=== PATIENT | male | born 1965 | race American Indian/Alaskan Native ===

== ENCOUNTER 2017-02-16 13:16 | Emergency (ER) | payer MEDICARE ==
--- NOTE | 2017-02-16 16:20 | XRay Report ---
ROUTINE CHEST, TWO VIEWS: History: Productive cough. PA and lateral views demonstrate the heart and mediastinal contour to be of normal size and shape. The lungs are clear and fully expanded and the soft tissues and bony structures are normal. IMPRESSION: Normal study.
[2017-02-16] MEDS ORDERED: NACL 0.9% 1000 ML 1,000 ML IV ONE (17:19)
[2017-02-16] MEDS ORDERED: DUONEB 0.5 MG-3 MG/3 ML SOLN IH ONE (17:19)
--- NOTE | 2017-02-16 17:20 | Emergency Department Report ---
ED General Adult HPI - General Chief complaint: Upper Respiratory Infection Stated complaint: UPPER RESPIRATORY INFECTION Time Seen by Provider: 02/16/17 16:51 Source: patient Mode of arrival: Ambulatory Limitations: No Limitations - History of Present Illness Initial comments: PT c/o cough x 4-6 months. PT states his cough is productive. PT also reports back pain that radiates down into scrotum. PT also c/o yellowing of his eyes. PT states he kept delaying care because he thought his symptoms would improve. PT states he has chest congestion and wheezing sometimes at night. PT states he lives alone, denies sick contacts. PT states he has not been sexually active in years. PT denies hx of IVDA, drinking or blood transfusions. PT is not a smoker. PT also denies use of OTC pain medications that include Tylenol. MD Complaint: Cough/ jaundice Onset/Timin -: Gradual, month(s) Location: eyes, chest, abdomen Quality: aching Consistency: constant Improves with: none Associated Symptoms: cough, fever/chills, malaise, nausea/vomiting. denies: chest pain, rash, shortness of breath - Related Data Home Medications Medication Instructions Recorded Confirmed Last Taken Amlodipine Besylate/Benazepril 1 tab PO QDAY 11/24/13 11/24/13 11/23/13 12:00 [Lotrel 10-20 mg] Atenolol [Tenormin] 25 mg PO QDAY 11/24/13 11/24/13 11/23/13 12:00 Previous Rx's Medication Instructions Recorded Last Taken Type HYDROcodone/APAP 5-325 [[place] 1 each PO Q8HR PRN #15 tablet 11/24/13 Unknown Rx 5-325 mg TAB] Tamsulosin [Flomax] 0.4 mg PO QDAY #6 cap 11/24/13 Unknown Rx Ciprofloxacin HCl [Ciprofloxacin 500 mg PO Q12H #20 tab 06/28/15 Unknown Rx TAB] Allergies Allergy/AdvReac Type Severity Reaction Status Date / Time No Known Allergies Allergy Unverified 11/24/13 14:23 ED Review of Systems ROS: Stated complaint: UPPER RESPIRATORY INFECTION Other details as noted in HPI Comment: All other systems reviewed and negative Constitutional: chills, fever (subjective ) Eyes: other (yellowing of the whites of his eyes ). denies: eye discharge ENT: throat pain, congestion, other (post nasal drainage ) Respiratory: cough, wheezing Cardiovascular: denies: chest pain Gastrointestinal: as per HPI, nausea. denies: abdominal pain, vomiting Genitourinary: testicular pain, other (urine color appears more yellow ). denies: dysuria, hematuria, discharge Musculoskeletal: back pain Skin: denies: rash, lesions, change in color ED Past Medical Hx - Past Medical History Hx Hypertension: Yes Hx Diabetes: Yes Additional medical history: high cholesterol - Surgical History Past Surgical History?: No - Social History Smoking Status: Never Smoker Substance Use Type: None - Medications Home Medications: Home Medications Medication Instructions Recorded Confirmed Last Taken Type Amlodipine Besylate/Benazepril 1 tab PO QDAY 11/24/13 11/24/13 11/23/13 12:00 History [Lotrel 10-20 mg] Atenolol [Tenormin] 25 mg PO QDAY 11/24/13 11/24/13 11/23/13 12:00 History HYDROcodone/APAP 5-325 [[place] 1 each PO Q8HR PRN #15 tablet 11/24/13 Unknown Rx 5-325 mg TAB] Tamsulosin [Flomax] 0.4 mg PO QDAY #6 cap 11/24/13 Unknown Rx Ciprofloxacin HCl [Ciprofloxacin 500 mg PO Q12H #20 tab 06/28/15 Unknown Rx TAB] ED Physical Exam - General Limitations: No Limitations General appearance: alert, in no apparent distress - Head Head exam: Present: atraumatic, normocephalic, normal inspection - Eye Eye exam: Present: PERRL, EOMI, scleral icterus. Absent: nystagmus, periorbital swelling, periorbital tenderness Pupils: Present: normal accommodation - ENT ENT exam: Present: normal exam, mucous membranes moist, normal external ear exam - Neck Neck exam: Present: normal inspection, full ROM. Absent: tenderness, meningismus, lymphadenopathy - Respiratory Respiratory exam: Present: normal lung sounds bilaterally. Absent: respiratory distress, chest wall tenderness, accessory muscle use, decreased breath sounds - Cardiovascular Cardiovascular Exam: Present: regular rate, normal rhythm, normal heart sounds - GI/Abdominal GI/Abdominal exam: Present: soft, tenderness, hyperactive bowel sounds - Extremities Exam Extremities exam: Present: normal inspection, full ROM. Absent: tenderness, pedal edema, calf tenderness - Back Exam Back exam: Present: normal inspection, full ROM, other (negative straight leg raise ). Absent: CVA tenderness (R), CVA tenderness (L), muscle spasm, paraspinal tenderness, vertebral tenderness - Neurological Exam Neurological exam: Present: alert, oriented X3, CN II-XII intact, normal gait - Psychiatric Psychiatric exam: Present: normal affect, normal mood - Skin Skin exam: Present: warm, dry, intact ED Course Vital Signs 02/16/17 13:33 Temperature 98.1 F Pulse Rate 63 Respiratory 18 Rate Blood Pressure 125/85 O2 Sat by Pulse 100 Oximetry - Reevaluation(s) Reevaluation #1: 02/16/17 17:23 PT aware of XR results. PT aware additional labs ordered. Reevaluation #2: 02/16/17 19:11 PT states he is feeling better after receiving 1L ns. PT wanting dc home. PT aware he will need to follow up with PCP. Dr Dailey aware of pt and agrees with plan of care. Reevaluation #3: 02/16/17 19:14 given length of pt's symptoms will treat as complicated bronchitis - Pulse Oximetry Interpretation Digit-Finger Initial Pulse Oximetry Readin Actions Taken: none ED Medical Decision Making - Lab Data Result diagrams: 02/16/17 17:49 02/16/17 17:49 Lab Results 02/16/17 02/16/17 02/16/17 Range/Units 17:42 17:49 17:49 WBC 6.1 (4.5-11.0) K/mm3 RBC 4.93 (3.65-5.03) M/mm3 Hgb 14.3 (11.8-15.2) gm/dl Hct 43.9 (35.5-45.6) % MCV 89 (84-94) fl MCH 29 (28-32) pg MCHC 33 (32-34) % RDW 13.0 L (13.2-15.2) % Plt Count 246 (140-440) K/mm3 Lymph % (Auto) 38.3 H (13.4-35.0) % [place] % (Auto) 7.6 H (0.0-7.3) % Eos % (Auto) 1.2 (0.0-4.3) % Baso % (Auto) 1.0 (0.0-1.8) % Lymph # 2.4 (1.2-5.4) K/mm3 [place] # 0.5 (0.0-0.8) K/mm3 Eos # 0.1 (0.0-0.4) K/mm3 Baso # 0.1 (0.0-0.1) K/mm3 Seg Neutrophils % 51.9 (40.0-70.0) % Seg Neutrophils # 3.2 (1.8-7.7) K/mm3 Sodium 137 (137-145) mmol/L Potassium 4.0 (3.6-5.0) mmol/L Chloride 97.6 L (98-107) mmol/L Carbon Dioxide 24 (22-30) mmol/L Anion Gap 19 mmol/L BUN 17 (9-20) mg/dL Creatinine 0.9 (0.8-1.5) mg/dL Estimated GFR > 60 ml/min BUN/Creatinine Ratio 18.88 % Glucose 110 H (75-100) mg/dL Calcium 9.6 (8.4-10.2) mg/dL Total Bilirubin 1.2 (0.1-1.2) mg/dL AST 19 (5-40) units/L ALT 18 (7-56) units/L Alkaline Phosphatase 64 (35-129) units/L Total Protein 8.1 (6.3-8.2) g/dL Albumin 4.3 (3.9-5) g/dL Albumin/Globulin Ratio 1.1 % Lipase 22 (13-60) units/L Urine Color Yellow (Yellow) Urine Turbidity Clear (Clear) Urine pH 7.0 (5.0-7.0) Ur Specific [place] 1.014 (1.003-1.030) Urine Protein <15 mg/dl (Negative) mg/dL Urine Glucose (UA) Neg (Negative) mg/dL Urine Ketones Tr (Negative) mg/dL Urine Blood Neg (Negative) Urine Nitrite Neg (Negative) Urine Bilirubin Neg (Negative) Urine Urobilinogen < 2.0 (<2.0) mg/dL Ur Leukocyte Esterase Neg (Negative) Urine WBC (Auto) < 1.0 (0.0-6.0) /HPF Urine RBC (Auto) 1.0 (0.0-6.0) /HPF - Radiology Data Radiology results: report reviewed CXR-NAP - Differential Diagnosis hepatitis, bronchitis, pna Critical Care Time: No Critical care attestation.: If time is entered above; I have spent that time in minutes in the direct care of this critically ill patient, excluding procedure time. ED Disposition Clinical Impression: Bronchitis, Yellow eyes, Acute exacerbation of chronic low back pain Disposition: DISCHARGED TO HOME OR SELFCARE Is pt being admited?: No Does the pt Need Aspirin: No Condition: Stable Instructions: Chronic Bronchitis (ED), Chronic Back Pain (ED), Jaundice (ED) Additional Instructions: Drink plenty of fluids Avoid OTC medication that contains Tylenol Follow up with PCP in 2-3 days, return to ED if worsening or concerns Referrals: PRIMARY CARE, [Primary Care Provider] - 3-5 Days MINISTERIO GONZALEZ MD [Staff Physician] - 3-5 Days [facility] [Outside] - 3-5 Days [facility] [Outside] - 3-5 Days Time of Disposition: 19:13
[2017-02-16 18:10] LABS: Eosinophils % (Auto) 1.2 % (0.0-4.3); Hematocrit 43.9 % (35.5-45.6); Hemoglobin 14.3 gm/dl (11.8-15.2); Mean Corpuscular HGB Conc 33 % (32-34); Mean Corpuscular Hemoglobin 29 pg (28-32); Mean Corpuscular Volume 89 fl (84-94); Platelet Count 246 K/mm3 (140-440); Red Blood Count 4.93 M/mm3 (3.65-5.03); White Blood Count 6.1 K/mm3 (4.5-11.0)
[2017-02-16 18:16] LABS: Bilirubin,Urine NEG (Negative); Blood,Urine NEG (Negative); Ketones,Urine TR mg/dL (Negative); Leukocyte Esterase,Urine NEG (Negative); Nitrite,Urine NEG (Negative); Protein,Urine <15 mg/dL mg/dL (Negative); Urobilinogen,Urine < 2.0 mg/dL (<2.0); WBC,Urine < 1.0 /HPF (0.0-6.0)
[2017-02-16 18:20] LABS: Alanine Aminotransferase 18 units/L (7-56); Albumin 4.3 g/dL (3.9-5); Albumin/Globulin Ratio 1.1 %; Alkaline Phosphatase 64 units/L (35-129); Anion Gap 19 mmol/L; BUN/Creatinine Ratio 18.88; Bilirubin,Total 1.2 mg/dL (0.1-1.2); Blood Urea Nitrogen 17 mg/dL (9-20); Calcium 9.6 mg/dL (8.4-10.2); Carbon Dioxide 24 mmol/L (22-30); Chloride 97.6 mmol/L (98-107); Glucose 110 mg/dL (75-100); Lipase 22 units/L (13-60); Sodium 137 mmol/L (137-145); Total Protein 8.1 g/dL (6.3-8.2)
[2017-02-16 19:53] VITALS: BP 128/80
== END 2017-02-16 19:51 | disposition home or self-care (01) ==
LOC: ED 13:16
DX: J40 Bronchitis, not specified as acute or chronic (principal); M54.5 Low back pain; G89.29 Other chronic pain; H57.9 Unspecified disorder of eye and adnexa; I10 Essential (primary) hypertension; E11.9 Type 2 diabetes mellitus without complications; E78.00 Pure hypercholesterolemia, unspecified
CPT/HCPCS: 36415; 71020; 80053; 81001; 83690; 85025; 96360; 99284; J7030

== ENCOUNTER 2017-03-08 07:22 | Emergency (ER) | payer MEDICARE ==
[2017-03-08 07:41] VITALS: BP 138/91
[2017-03-08] MEDS ORDERED: DECADRON IM ONE (08:58)
[2017-03-08] MEDS ORDERED: TORADOL IM ONE (08:58)
[2017-03-08 09:32] LABS: Bilirubin,Urine NEG (Negative); Blood,Urine SM (Negative); Ketones,Urine NEG (Negative); Leukocyte Esterase,Urine NEG (Negative); Mucus,Urine FEW /HPF; Nitrite,Urine NEG (Negative); Protein,Urine <15 mg/dL mg/dL (Negative); Urobilinogen,Urine < 2.0 mg/dL (<2.0)
--- NOTE | 2017-03-08 09:48 | Emergency Department Report ---
ED General Adult HPI - General Chief complaint: Back Pain/Injury Stated complaint: COUGH/BACK PAIN Time Seen by Provider: 03/08/17 08:18 Source: patient Mode of arrival: Ambulatory Limitations: No Limitations - History of Present Illness Initial comments: 51-year-old male presents to the ED complaining about low back pain as well as pain around the groin area for masturbating. She also states that he is then taking Levaquin for a chest cold/bronchitis and states that he needs more. States that he did not fill his inhaler from previous visit. Denies fever, shortness of breath, penile discharge, flank pain Severity scale (0 -10): 7 - Related Data Home Medications Medication Instructions Recorded Confirmed Last Taken Amlodipine Besylate/Benazepril 1 tab PO QDAY 11/24/13 11/24/13 11/23/13 12:00 [Lotrel 10-20 mg] Atenolol [Tenormin] 25 mg PO QDAY 11/24/13 11/24/13 11/23/13 12:00 Previous Rx's Medication Instructions Recorded Last Taken Type HYDROcodone/APAP 5-325 [[place] 1 each PO Q8HR PRN #15 tablet 11/24/13 Unknown Rx 5-325 mg TAB] Tamsulosin [Flomax] 0.4 mg PO QDAY #6 cap 11/24/13 Unknown Rx Ciprofloxacin HCl [Ciprofloxacin 500 mg PO Q12H #20 tab 06/28/15 Unknown Rx TAB] Albuterol Sulfate [Ventolin HFA] 2 puff IH Q4H PRN #1 hfa.aer.ad 02/16/17 Unknown Rx Benzonatate [Tessalon Perles] 100 mg PO Q8HR PRN #12 capsule 02/16/17 Unknown Rx Levofloxacin [Levaquin TAB] 500 mg PO QDAY #7 tablet 02/16/17 Unknown Rx ALBUTEROL Inhaler [ProAir HFA 2 puff IH QID PRN #7 inhalation 03/08/17 Unknown Rx Inhaler] Cyclobenzaprine [Flexeril] 10 mg PO TID PRN #14 tablet 03/08/17 Unknown Rx Diclofenac Sodium 75 mg PO BID #14 tablet.dr 03/08/17 Unknown Rx methylPREDNISolone [Medrol] 4 mg PO QDAY #1 tab.ds.pk 03/08/17 Unknown Rx Allergies Allergy/AdvReac Type Severity Reaction Status Date / Time No Known Allergies Allergy Unverified 11/24/13 14:23 ED Review of Systems ROS: Stated complaint: COUGH/BACK PAIN Other details as noted in HPI Constitutional: denies: chills, fever Eyes: denies: eye pain, eye discharge, vision change ENT: denies: ear pain, throat pain Respiratory: cough. denies: shortness of breath, wheezing Cardiovascular: denies: chest pain, palpitations Endocrine: no symptoms reported Gastrointestinal: denies: abdominal pain, nausea, diarrhea Genitourinary: denies: urgency, dysuria Musculoskeletal: back pain. denies: joint swelling, arthralgia Skin: denies: rash, lesions Neurological: denies: headache, weakness, paresthesias Psychiatric: denies: anxiety, depression Hematological/Lymphatic: denies: easy bleeding, easy bruising ED Past Medical Hx - Past Medical History Previous Medical History?: Yes Hx Hypertension: Yes Hx Diabetes: Yes Additional medical history: high cholesterol - Surgical History Past Surgical History?: No - Social History Smoking Status: Never Smoker Substance Use Type: None - Medications Home Medications: Home Medications Medication Instructions Recorded Confirmed Last Taken Type Amlodipine Besylate/Benazepril 1 tab PO QDAY 11/24/13 11/24/13 11/23/13 12:00 History [Lotrel 10-20 mg] Atenolol [Tenormin] 25 mg PO QDAY 11/24/13 11/24/13 11/23/13 12:00 History HYDROcodone/APAP 5-325 [[place] 1 each PO Q8HR PRN #15 tablet 11/24/13 Unknown Rx 5-325 mg TAB] Tamsulosin [Flomax] 0.4 mg PO QDAY #6 cap 11/24/13 Unknown Rx Ciprofloxacin HCl [Ciprofloxacin 500 mg PO Q12H #20 tab 06/28/15 Unknown Rx TAB] Albuterol Sulfate [Ventolin HFA] 2 puff IH Q4H PRN #1 hfa.aer.ad 02/16/17 Unknown Rx Benzonatate [Tessalon Perles] 100 mg PO Q8HR PRN #12 capsule 02/16/17 Unknown Rx Levofloxacin [Levaquin TAB] 500 mg PO QDAY #7 tablet 02/16/17 Unknown Rx ALBUTEROL Inhaler [ProAir HFA 2 puff IH QID PRN #7 inhalation 03/08/17 Unknown Rx Inhaler] Cyclobenzaprine [Flexeril] 10 mg PO TID PRN #14 tablet 03/08/17 Unknown Rx Diclofenac Sodium 75 mg PO BID #14 tablet. 03/08/17 Unknown Rx methylPREDNISolone [Medrol] 4 mg PO QDAY #1 tab.ds.pk 03/08/17 Unknown Rx ED Physical Exam - General Limitations: No Limitations General appearance: alert, in no apparent distress - Head Head exam: Present: atraumatic, normocephalic - Eye Eye exam: Present: normal appearance - ENT ENT exam: Present: normal orophraynx, mucous membranes moist, normal external ear exam - Neck Neck exam: Present: normal inspection - Respiratory Respiratory exam: Present: normal lung sounds bilaterally. Absent: respiratory distress, wheezes, rales, rhonchi, stridor - Cardiovascular Cardiovascular Exam: Present: regular rate, normal rhythm. Absent: systolic murmur, diastolic murmur, rubs, gallop - GI/Abdominal GI/Abdominal exam: Present: soft, normal bowel sounds - Rectal Rectal exam: Present: deferred - Extremities Exam Extremities exam: Present: normal inspection - Back Exam Back exam: Present: normal inspection, paraspinal tenderness. Absent: CVA tenderness (R), CVA tenderness (L) - Neurological Exam Neurological exam: Present: alert, oriented X3 - Psychiatric Psychiatric exam: Present: normal affect, normal mood - Skin Skin exam: Present: warm, dry, intact, normal color. Absent: rash ED Course Vital Signs 03/08/17 03/08/17 07:37 09:17 Temperature 98.3 F Pulse Rate 71 Respiratory 16 18 Rate Blood Pressure 138/91 O2 Sat by Pulse 100 Oximetry ED Medical Decision Making - Lab Data Vital Signs 03/08/17 03/08/17 07:37 09:17 Temperature 98.3 F Pulse Rate 71 Respiratory 16 18 Rate Blood Pressure 138/91 O2 Sat by Pulse 100 Oximetry Laboratory Results - last 24 hr 03/08/17 09:19 Urine Color Yellow Urine Turbidity Clear Urine pH 5.0 Ur Specific [place] 1.015 Urine Protein <15 mg/dl Urine Glucose (UA) Neg Urine Ketones Neg Urine Blood Sm Urine Nitrite Neg Urine Bilirubin Neg Urine Urobilinogen < 2.0 Ur Leukocyte Esterase Neg Urine WBC (Auto) 1.0 Urine RBC (Auto) 1.0 Urine Mucus Few - Medical Decision Making Patient urine results is unremarkable. Neck distress at this time. We will continue steroid and albuterol for cough and follow-up to urology for further evaluation of groin pain Critical care attestation.: If time is entered above; I have spent that time in minutes in the direct care of this critically ill patient, excluding procedure time. ED Disposition Clinical Impression: Chest congestion, Dysuria, Back pain Disposition: DISCHARGED TO HOME OR SELFCARE Is pt being admited?: No Does the pt Need Aspirin: No Condition: Good Instructions: Low Back Strain (ED) Prescriptions: ALBUTEROL Inhaler [ProAir HFA Inhaler] 2 puff IH QID PRN #7 inhalation PRN Reason: Shortness Of Breath Cyclobenzaprine [Flexeril] 10 mg PO TID PRN #14 tablet PRN Reason: Muscle Spasm Diclofenac Sodium 75 mg PO BID #14 tablet. methylPREDNISolone [Medrol] 4 mg PO QDAY #1 tab.ds.pk Referrals: PRIMARY CARE, [Primary Care Provider] - 3-5 Days LINDA ROSARIO MD [Staff Physician] - 3-5 Days Time of Disposition: 09:48
== END 2017-03-08 10:10 | disposition home or self-care (01) ==
LOC: ED 07:22
DX: R09.89 Other specified symptoms and signs involving the circulatory and respiratory systems (principal); R30.0 Dysuria; M54.5 Low back pain; I10 Essential (primary) hypertension; E11.9 Type 2 diabetes mellitus without complications; E78.00 Pure hypercholesterolemia, unspecified
CPT/HCPCS: 81001; 96372; 99283; J1100; J1885

== ENCOUNTER 2017-03-13 01:15 | Emergency (ER) | payer MEDICARE ==
[2017-03-13 02:08] VITALS: BP 125/92
[2017-03-13 02:18] LABS: Basophils % (Auto) 1.1 % (0.0-1.8); Eosinophils % (Auto) 1.5 % (0.0-4.3); Hematocrit 42.6 % (35.5-45.6); Hemoglobin 14.1 gm/dl (11.8-15.2); Mean Corpuscular HGB Conc 33 % (32-34); Mean Corpuscular Hemoglobin 29 pg (28-32); Mean Corpuscular Volume 89 fl (84-94); Platelet Count 210 K/mm3 (140-440); Red Blood Count 4.81 M/mm3 (3.65-5.03); Red Cell Distribution Width 13.1 % (13.2-15.2); White Blood Count 8.2 K/mm3 (4.5-11.0)
[2017-03-13 02:38] LABS: Anion Gap 18 mmol/L; BUN/Creatinine Ratio 19.16; Blood Urea Nitrogen 23 mg/dL (9-20); Calcium 9.3 mg/dL (8.4-10.2); Carbon Dioxide 26 mmol/L (22-30); Chloride 95.7 mmol/L (98-107); Glucose 113 mg/dL (75-100); Potassium 4.1 mmol/L (3.6-5.0); Sodium 136 mmol/L (137-145)
[2017-03-13 02:56] LABS: Bilirubin,Urine NEG (Negative); Blood,Urine NEG (Negative); Ketones,Urine NEG (Negative); Leukocyte Esterase,Urine NEG (Negative); Mucus,Urine FEW /HPF; Nitrite,Urine NEG (Negative); Protein,Urine <15 mg/dL mg/dL (Negative); Urobilinogen,Urine < 2.0 mg/dL (<2.0); WBC,Urine < 1.0 /HPF (0.0-6.0)
--- NOTE | 2017-03-13 05:37 | Emergency Department Report ---
ED Male HPI - General Chief complaint: Urogenital-Male Stated complaint: UTI, CHEST COLD Time Seen by Provider: 03/13/17 05:16 Source: patient Mode of arrival: Ambulatory Limitations: No Limitations - History of Present Illness Initial comments: Patient comes in the ER today with complaints of bilateral testicular discomfort , penile discharge and groin discomfort. Patient states that he has been having these symptoms for several weeks now. Patient states that he was recently seen here and started on Levaquin for 7 days and states his symptoms did improve during that time but that the symptoms seem to return shortly after he stopped taking the antibiotics. Patient also complaining of chest congestion as well as sinus congestion for the past month and states that when he was on the Levaquin symptoms improved but returned as well. Patient asking for more antibiotics. Patient denies any hemoptysis, hematuria, abdominal pain , fever, chills. The patient further notes that he has not been sexually active for 2 or 3 years. MD Complaint: testicle pain, penile discharge - Related Data Home Medications Medication Instructions Recorded Confirmed Last Taken Amlodipine Besylate/Benazepril 1 tab PO QDAY 11/24/13 03/13/17 11/23/13 12:00 [Lotrel 10-20 mg] Previous Rx's Medication Instructions Recorded Last Taken Type ALBUTEROL Inhaler [ProAir HFA 2 puff IH QID PRN #7 inhalation 03/08/17 Unknown Rx Inhaler] Cyclobenzaprine [Flexeril 10 MG 10 mg PO TID PRN #14 tablet 03/08/17 Unknown Rx TAB] Diclofenac Sodium 75 mg PO BID #14 tablet. 03/08/17 Unknown Rx Doxycycline [Vibramycin CAP] 100 mg PO BID #42 capsule 03/13/17 Unknown Rx Phenazopyridine [Pyridium] 200 mg PO TID #9 tab 03/13/17 Unknown Rx Allergies Allergy/AdvReac Type Severity Reaction Status Date / Time No Known Allergies Allergy Unverified 11/24/13 14:23 ED Review of Systems ROS: Stated complaint: UTI, CHEST COLD Other details as noted in HPI Constitutional: denies: chills, fever Eyes: denies: eye pain, eye discharge, vision change ENT: congestion. denies: ear pain, throat pain Respiratory: cough. denies: shortness of breath, SOB with exertion, SOB at rest , wheezing Cardiovascular: denies: chest pain, palpitations Endocrine: no symptoms reported Gastrointestinal: denies: abdominal pain, nausea, diarrhea, constipation, hematemesis, hematochezia Genitourinary: discharge, testicular pain. denies: urgency, dysuria, hematuria , testicular mass Musculoskeletal: denies: back pain, joint swelling, arthralgia Skin: denies: rash, lesions Neurological: denies: headache, weakness, paresthesias Psychiatric: denies: anxiety, depression Hematological/Lymphatic: denies: easy bleeding, easy bruising ED Past Medical Hx - Past Medical History Previous Medical History?: Yes Hx Hypertension: Yes Hx Diabetes: Yes Additional medical history: high cholesterol - Surgical History Past Surgical History?: No - Social History Smoking Status: Never Smoker Substance Use Type: None - Medications Home Medications: Home Medications Medication Instructions Recorded Confirmed Last Taken Type Amlodipine Besylate/Benazepril 1 tab PO QDAY 11/24/13 03/13/17 11/23/13 12:00 History [Lotrel 10-20 mg] ALBUTEROL Inhaler [ProAir HFA 2 puff IH QID PRN #7 inhalation 03/08/17 03/13/17 Unknown Rx Inhaler] Cyclobenzaprine [Flexeril 10 MG 10 mg PO TID PRN #14 tablet 03/08/17 03/13/17 Unknown Rx TAB] Diclofenac Sodium 75 mg PO BID #14 tablet. 03/08/17 03/13/17 Unknown Rx Doxycycline [Vibramycin CAP] 100 mg PO BID #42 capsule 03/13/17 Unknown Rx Phenazopyridine [Pyridium] 200 mg PO TID #9 tab 03/13/17 Unknown Rx ED Physical Exam - General Limitations: No Limitations General appearance: alert, in no apparent distress - Head Head exam: Present: atraumatic, normocephalic - Eye Eye exam: Present: normal appearance - ENT ENT exam: Present: normal exam, normal orophraynx, mucous membranes moist, TM's normal bilaterally, normal external ear exam, other (bilateral frontal and maxillary tenderness on percussion. Bilateral nasal congestion and swollen, erythematous nasal turbinates.) - Neck Neck exam: Present: normal inspection - Respiratory Respiratory exam: Present: normal lung sounds bilaterally, rhonchi. Absent: respiratory distress, wheezes, rales, chest wall tenderness, accessory muscle use - Cardiovascular Cardiovascular Exam: Present: regular rate, normal rhythm. Absent: systolic murmur, diastolic murmur, rubs, gallop - GI/Abdominal GI/Abdominal exam: Present: soft, normal bowel sounds. Absent: distended, tenderness, guarding, rebound - Rectal Rectal exam: Present: deferred - exam: Present: normal inspection, testicular tenderness, circumcision, other (slight tenderness and swelling noted to left greater than right testicle consistent with epididymitis.). Absent: urethral discharge, scrotal swelling - Extremities Exam Extremities exam: Present: normal inspection - Back Exam Back exam: Present: normal inspection, full ROM. Absent: tenderness, CVA tenderness (R), CVA tenderness (L) - Neurological Exam Neurological exam: Present: alert, oriented X3, CN II-XII intact - Psychiatric Psychiatric exam: Present: normal affect, normal mood - Skin Skin exam: Present: warm, dry, intact, normal color. Absent: rash ED Course Vital Signs 03/13/17 01:59 Temperature 98.2 F Pulse Rate 62 Respiratory 18 Rate Blood Pressure 125/92 O2 Sat by Pulse 100 Oximetry ED Medical Decision Making - Lab Data Result diagrams: 03/13/17 02:09 03/13/17 02:09 - Medical Decision Making Patient is nontoxic and hemodynamically stable. Lab results reviewed and discussed with patient in room. Lab results do show a small amount of mucus in urine. Since patient is not sexually active for several years and do not suspect that patient has STD but rather than potential epididymitis. I will start patient on doxycycline for epididymitis as well as treating any upper respiratory infection. Patient is stable for discharge and and is agreement with treatment plan. Critical care attestation.: If time is entered above; I have spent that time in minutes in the direct care of this critically ill patient, excluding procedure time. ED Disposition Clinical Impression: Epididymitis, Bronchitis, Sinusitis Disposition: DISCHARGED TO HOME OR SELFCARE Is pt being admited?: No Does the pt Need Aspirin: No Condition: Good Instructions: Epididymitis (ED), Acute Bronchitis (ED), Sinusitis (ED) Prescriptions: Doxycycline [Vibramycin CAP] 100 mg PO BID #42 capsule Phenazopyridine [Pyridium] 200 mg PO TID #9 tab Referrals: PRIMARY CARE, [Primary Care Provider] - 3-5 Days Forms: STI Treatment and Prevention Time of Disposition: 05:41
== END 2017-03-13 05:45 | disposition home or self-care (01) ==
LOC: ED 01:15
DX: N45.1 Epididymitis (principal); J40 Bronchitis, not specified as acute or chronic; J32.9 Chronic sinusitis, unspecified; I10 Essential (primary) hypertension; E11.9 Type 2 diabetes mellitus without complications; E78.00 Pure hypercholesterolemia, unspecified
CPT/HCPCS: 36415; 80048; 81001; 85025; 99283

== ENCOUNTER 2017-10-31 17:35 | Emergency (ER) | payer MEDICARE ==
[2017-10-31 17:47] VITALS: BP 115/75
[2017-10-31 18:44] LABS: Bilirubin,Urine NEG (Negative); Blood,Urine NEG (Negative); Calcium Oxalate Crystals,Urine 1+; Color,Urine Amber (Yellow); Mucus,Urine 1+ /HPF; Nitrite,Urine NEG (Negative); Protein,Urine <15 mg/dL mg/dL (Negative)
[2017-10-31] MEDS ORDERED: XYLOCAINE 1% MPF 5 mL INFILTRATI ONE (22:22)
[2017-10-31] MEDS ORDERED: ROCEPHIN IM ONE (22:22)
--- NOTE | 2017-10-31 22:22 | Emergency Department Report ---
ED Male HPI - General Chief complaint: Abdominal Pain Stated complaint: H/A, GROIN PAIN Time Seen by Provider: 10/31/17 21:54 Source: patient Mode of arrival: Ambulatory Limitations: No Limitations - History of Present Illness MD Complaint: penile discharge, dysuria Onset/Timin -: days(s) Location: penis Severity: mild Quality: burning Consistency: intermittent Worsens with: urination denies other symptoms - Related Data Home Medications Medication Instructions Recorded Confirmed Last Taken Amlodipine Besylate/Benazepril 1 tab PO QDAY 11/24/13 03/13/17 11/23/13 12:00 [Lotrel 10-20 mg] Previous Rx's Medication Instructions Recorded Last Taken Type ALBUTEROL Inhaler [ProAir HFA 2 puff IH QID PRN #7 inhalation 03/08/17 Unknown Rx Inhaler] Cyclobenzaprine [Flexeril 10 MG 10 mg PO TID PRN #14 tablet 03/08/17 Unknown Rx TAB] Diclofenac Sodium 75 mg PO BID #14 tablet. 03/08/17 Unknown Rx Doxycycline [Vibramycin CAP] 100 mg PO BID #42 capsule 03/13/17 Unknown Rx Phenazopyridine [Pyridium] 200 mg PO TID #9 tab 03/13/17 Unknown Rx Doxycycline [Vibramycin CAP] 100 mg PO Q12HR #20 capsule 10/31/17 Unknown Rx Levofloxacin [Levaquin TAB] 500 mg PO QDAY #20 tablet 10/31/17 Unknown Rx Phenylephrine/Dm/Acetaminop/GG 10 ml PO Q6H PRN #1 liquid 10/31/17 Unknown Rx [Mucinex Wvuw-Qer-Dzfydrnkgz Lq] Allergies Allergy/AdvReac Type Severity Reaction Status Date / Time No Known Allergies Allergy Verified 10/31/17 17:43 ED Review of Systems ROS: Stated complaint: H/A, GROIN PAIN Other details as noted in HPI Constitutional: denies: chills, fever Eyes: denies: eye pain, eye discharge, vision change ENT: denies: ear pain, throat pain Respiratory: denies: cough, shortness of breath, wheezing Cardiovascular: denies: chest pain, palpitations Endocrine: no symptoms reported Gastrointestinal: denies: abdominal pain, nausea, diarrhea Genitourinary: denies: urgency, dysuria Musculoskeletal: denies: back pain, joint swelling, arthralgia Skin: denies: rash, lesions Neurological: denies: headache, weakness, paresthesias Psychiatric: denies: anxiety, depression Hematological/Lymphatic: denies: easy bleeding, easy bruising ED Past Medical Hx - Past Medical History Hx Hypertension: Yes Hx Diabetes: Yes Additional medical history: high cholesterol - Social History Smoking Status: Never Smoker Substance Use Type: None - Medications Home Medications: Home Medications Medication Instructions Recorded Confirmed Last Taken Type Amlodipine Besylate/Benazepril 1 tab PO QDAY 11/24/13 03/13/17 11/23/13 12:00 History [Lotrel 10-20 mg] ALBUTEROL Inhaler [ProAir HFA 2 puff IH QID PRN #7 inhalation 03/08/17 03/13/17 Unknown Rx Inhaler] Cyclobenzaprine [Flexeril 10 MG 10 mg PO TID PRN #14 tablet 03/08/17 03/13/17 Unknown Rx TAB] Diclofenac Sodium 75 mg PO BID #14 tablet. 03/08/17 03/13/17 Unknown Rx Doxycycline [Vibramycin CAP] 100 mg PO BID #42 capsule 03/13/17 Unknown Rx Phenazopyridine [Pyridium] 200 mg PO TID #9 tab 03/13/17 Unknown Rx Doxycycline [Vibramycin CAP] 100 mg PO Q12HR #20 capsule 10/31/17 Unknown Rx Levofloxacin [Levaquin TAB] 500 mg PO QDAY #20 tablet 10/31/17 Unknown Rx Phenylephrine/Dm/Acetaminop/GG 10 ml PO Q6H PRN #1 liquid 10/31/17 Unknown Rx [Mucinex Vwje-Dju-Rklosdhzjq Lq] ED Physical Exam - General Limitations: No Limitations General appearance: alert, in no apparent distress - Head Head exam: Present: atraumatic, normocephalic - Eye Eye exam: Present: normal appearance, PERRL, EOMI - ENT ENT exam: Present: mucous membranes moist - Neck Neck exam: Present: normal inspection - Respiratory Respiratory exam: Present: normal lung sounds bilaterally. Absent: respiratory distress - Cardiovascular Cardiovascular Exam: Present: regular rate, normal rhythm. Absent: systolic murmur, diastolic murmur, rubs, gallop - GI/Abdominal GI/Abdominal exam: Present: soft, normal bowel sounds - Rectal Rectal exam: Present: deferred - Extremities Exam Extremities exam: Present: normal inspection - Back Exam Back exam: Present: normal inspection - Neurological Exam Neurological exam: Present: alert, oriented X3 - Psychiatric Psychiatric exam: Present: normal affect, normal mood - Skin Skin exam: Present: warm, dry, intact, normal color. Absent: rash ED Course Vital Signs 10/31/17 17:43 Temperature 98.3 F Pulse Rate 58 L Respiratory 16 Rate Blood Pressure 115/75 O2 Sat by Pulse 98 Oximetry ED Medical Decision Making - Medical Decision Making A/P: possible urethritis 1-patient empirically treated with ceftriaxone, empiric course of doxycycline. [email or web address] 2-GC cultures sent 3-patient given follow-up with primary care, urology Critical care attestation.: If time is entered above; I have spent that time in minutes in the direct care of this critically ill patient, excluding procedure time. ED Disposition Clinical Impression: Urethritis Disposition: DC-01 TO HOME OR SELFCARE Is pt being admited?: No Does the pt Need Aspirin: No Condition: Stable Instructions: Nonspecific Urethritis in Men (ED), Upper Respiratory Infection ( ED), Cold Symptoms (ED) Prescriptions: Doxycycline [Vibramycin CAP] 100 mg PO Q12HR #20 capsule Levofloxacin [Levaquin TAB] 500 mg PO QDAY #20 tablet Phenylephrine/Dm/Acetaminop/GG [Mucinex Elor-Wgt-Zllawuchfc Lq] 10 ml PO Q6H PRN #1 liquid PRN Reason: Cough Referrals: [facility] [Outside] - 3-5 Days [facility] [Outside] - 3-5 Days [facility] [Provider Group] - 3-5 Days Forms: STI Treatment and Prevention Time of Disposition: 22:22
== END 2017-10-31 22:55 | disposition home or self-care (01) ==
LOC: ED 17:35
DX: N34.2 Other urethritis (principal); I10 Essential (primary) hypertension; E11.9 Type 2 diabetes mellitus without complications; E78.00 Pure hypercholesterolemia, unspecified
CPT/HCPCS: 81001; 96372; 99283; J0696

== ENCOUNTER 2017-12-19 20:19 | Emergency (ER) | payer MEDICARE ==
[2017-12-19 20:45] VITALS: BP 124/79
[2017-12-19 22:00] LABS: Bilirubin,Urine NEG (Negative); Blood,Urine NEG (Negative); Color,Urine Yellow (Yellow); Mucus,Urine 2+ /HPF; Protein,Urine <15 mg/dL mg/dL (Negative)
--- NOTE | 2017-12-19 22:49 | Emergency Department Report ---
ED Male HPI - General Chief complaint: Urogenital-Male Stated complaint: INFECTION Time Seen by Provider: 12/19/17 22:43 Source: patient Mode of arrival: Ambulatory Limitations: No Limitations - History of Present Illness Initial comments: 52-year-old -[place] male comes in for 3 weeks history of burning on urination. Patient reports he had similar symptoms in October but did not complete his medications. Patient is requesting to be placed back on medication since he is having pain with urination and lower back pain and penile pain. Patient reports of a subjective fever denies any nausea no vomiting or hematuria he does admit to a cough with phlegm off white in color. In the midst to penile pain. MD Complaint: penile discharge Severity scale (0 -10): 5 Quality: burning Worsens with: urination - Related Data Home Medications Medication Instructions Recorded Confirmed Last Taken Amlodipine Besylate/Benazepril 1 tab PO QDAY 11/24/13 03/13/17 11/23/13 12:00 [Lotrel 10-20 mg] Previous Rx's Medication Instructions Recorded Last Taken Type ALBUTEROL Inhaler [ProAir HFA 2 puff IH QID PRN #7 inhalation 03/08/17 Unknown Rx Inhaler] Cyclobenzaprine [Flexeril 10 MG 10 mg PO TID PRN #14 tablet 03/08/17 Unknown Rx TAB] Diclofenac Sodium 75 mg PO BID #14 tablet. 03/08/17 Unknown Rx Doxycycline [Vibramycin CAP] 100 mg PO BID #42 capsule 03/13/17 Unknown Rx Phenazopyridine [Pyridium] 200 mg PO TID #9 tab 03/13/17 Unknown Rx Phenylephrine/Dm/Acetaminop/GG 10 ml PO Q6H PRN #1 liquid 10/31/17 Unknown Rx [Mucinex Uudd-Gkl-Rcviejowkx Lq] Doxycycline [Vibramycin CAP] 100 mg PO Q12HR #20 capsule 12/19/17 Unknown Rx Levofloxacin [Levaquin TAB] 500 mg PO QDAY #20 tablet 12/19/17 Unknown Rx Allergies Allergy/AdvReac Type Severity Reaction Status Date / Time No Known Allergies Allergy Verified 10/31/17 17:43 ED Review of Systems ROS: Stated complaint: INFECTION Other details as noted in HPI Constitutional: denies: chills, fever Eyes: denies: eye pain, eye discharge, vision change ENT: denies: ear pain, throat pain Respiratory: denies: cough, shortness of breath, wheezing Cardiovascular: denies: chest pain, palpitations Endocrine: no symptoms reported Gastrointestinal: denies: abdominal pain, nausea, diarrhea Genitourinary: dysuria. denies: urgency Musculoskeletal: back pain Skin: denies: rash, lesions Neurological: denies: headache, weakness, paresthesias Psychiatric: denies: anxiety, depression Hematological/Lymphatic: denies: easy bleeding, easy bruising ED Past Medical Hx - Past Medical History Hx Hypertension: Yes Hx Diabetes: Yes Additional medical history: high cholesterol - Social History Smoking Status: Never Smoker Substance Use Type: None - Medications Home Medications: Home Medications Medication Instructions Recorded Confirmed Last Taken Type Amlodipine Besylate/Benazepril 1 tab PO QDAY 11/24/13 03/13/17 11/23/13 12:00 History [Lotrel 10-20 mg] ALBUTEROL Inhaler [ProAir HFA 2 puff IH QID PRN #7 inhalation 03/08/17 03/13/17 Unknown Rx Inhaler] Cyclobenzaprine [Flexeril 10 MG 10 mg PO TID PRN #14 tablet 03/08/17 03/13/17 Unknown Rx TAB] Diclofenac Sodium 75 mg PO BID #14 tablet. 03/08/17 03/13/17 Unknown Rx Doxycycline [Vibramycin CAP] 100 mg PO BID #42 capsule 03/13/17 Unknown Rx Phenazopyridine [Pyridium] 200 mg PO TID #9 tab 03/13/17 Unknown Rx Phenylephrine/Dm/Acetaminop/GG 10 ml PO Q6H PRN #1 liquid 10/31/17 Unknown Rx [Mucinex Uubd-Xke-Gkcnezolzv Lq] Doxycycline [Vibramycin CAP] 100 mg PO Q12HR #20 capsule 12/19/17 Unknown Rx Levofloxacin [Levaquin TAB] 500 mg PO QDAY #20 tablet 12/19/17 Unknown Rx ED Physical Exam - General Limitations: No Limitations General appearance: alert, in no apparent distress - Head Head exam: Present: atraumatic, normocephalic - Eye Eye exam: Present: normal appearance - ENT ENT exam: Present: mucous membranes moist - Neck Neck exam: Present: normal inspection - Respiratory Respiratory exam: Present: normal lung sounds bilaterally. Absent: respiratory distress - Cardiovascular Cardiovascular Exam: Present: regular rate, normal rhythm. Absent: systolic murmur, diastolic murmur, rubs, gallop - GI/Abdominal GI/Abdominal exam: Present: soft, normal bowel sounds - Rectal Rectal exam: Present: deferred - Extremities Exam Extremities exam: Present: normal inspection - Back Exam Back exam: Present: normal inspection - Neurological Exam Neurological exam: Present: alert, oriented X3 - Psychiatric Psychiatric exam: Present: normal affect, normal mood - Skin Skin exam: Present: warm, dry, intact, normal color. Absent: rash ED Course Vital Signs 12/19/17 20:22 Temperature 97.8 F Pulse Rate 70 Respiratory 18 Rate Blood Pressure 124/79 O2 Sat by Pulse 98 Oximetry ED Medical Decision Making - Medical Decision Making She's been evaluated by this provider fast track. I discussed the patient I'll I will refill his doxycycline and Levaquin. And have him follow-up with his primary care provider which he reports is Dr. Robins in [place]. Patient verbalized understanding. Critical care attestation.: If time is entered above; I have spent that time in minutes in the direct care of this critically ill patient, excluding procedure time. ED Disposition Clinical Impression: Dysuria Disposition: DC-01 TO HOME OR SELFCARE Is pt being admited?: No Does the pt Need Aspirin: No Condition: Stable Instructions: Dysuria (ED) Additional Instructions: Please complete antibiotics as prescribed. Follow-up with her primary care provider in 3-5 days. Prescriptions: Doxycycline [Vibramycin CAP] 100 mg PO Q12HR #20 capsule Levofloxacin [Levaquin TAB] 500 mg PO QDAY #20 tablet Referrals: LISSETH ELIZONDO MD [Primary Care Provider] - 3-5 Days Forms: Work/School Release Form(ED)
== END 2017-12-19 22:55 | disposition home or self-care (01) ==
LOC: ED 20:19
DX: R30.0 Dysuria (principal); R05 Cough; M54.5 Low back pain; N48.89 Other specified disorders of penis; I10 Essential (primary) hypertension; E11.9 Type 2 diabetes mellitus without complications; E78.00 Pure hypercholesterolemia, unspecified
CPT/HCPCS: 81001; 87591; 99283

== ENCOUNTER 2018-07-28 01:39 | Emergency (ER) | payer MEDICARE ==
[2018-07-28 02:05] VITALS: BP 138/84
[2018-07-28] MEDS ORDERED: ROCEPHIN ONE (03:13)
[2018-07-28 03:15] LABS: Bilirubin,Urine NEG (Negative); Blood,Urine NEG (Negative); Color,Urine Yellow (Yellow); Mucus,Urine FEW /HPF; Protein,Urine <15 mg/dL mg/dL (Negative)
[2018-07-28] MEDS ORDERED: ROCEPHIN IM ONE (03:18)
--- NOTE | 2018-07-28 04:14 | Emergency Department Report ---
- General Chief Complaint: Upper Respiratory Infection Stated Complaint: POSS URI Time Seen by Provider: 07/28/18 03:13 Source: patient Mode of arrival: Ambulatory Limitations: No Limitations - History of Present Illness MD Complaint: cough, sore throat, rhinorrhea, nasal congestion -: month(s) (reports waxing and waning symptoms for several months. Symptoms were improved with the utilization of antibodies, however, he discontinued use and sent to begin to reemerge reports to the emergency department today for a medication refill. Denies any new symptomology), Last night Quality: burning Consistency: intermittent Improves With: cough suppressant (an antibodies) Worsens With: nothing Associated Symptoms: rhinorrhea, nasal congestion, other (reports some episodes of dysuria and scattered sporadic episodes of loose stool). denies: shortness of breath, abdominal pain, nausea, diarrhea, epistaxis, ear pain Treatments Prior to Arrival: antibiotics - Related Data Home Medications Medication Instructions Recorded Confirmed Last Taken Amlodipine Besylate/Benazepril 1 tab PO QDAY 11/24/13 03/13/17 11/23/13 12:00 [Lotrel 10-20 mg] Previous Rx's Medication Instructions Recorded Last Taken Type ALBUTEROL Inhaler (OR & NICU) 2 puff IH QID PRN #7 inhalation 03/08/17 Unknown Rx [ProAir HFA Inhaler] Cyclobenzaprine [Flexeril 10 MG 10 mg PO TID PRN #14 tablet 03/08/17 Unknown Rx TAB] Diclofenac Sodium 75 mg PO BID #14 tablet. 03/08/17 Unknown Rx Doxycycline [Vibramycin CAP] 100 mg PO BID #42 capsule 03/13/17 Unknown Rx Phenazopyridine [Pyridium] 200 mg PO TID #9 tab 03/13/17 Unknown Rx Phenylephrine/Dm/Acetaminop/GG 10 ml PO Q6H PRN #1 liquid 10/31/17 Unknown Rx [Mucinex Xoyy-Hlx-Kvmaxqhaql Lq] Brompheniramine/Pseudoephed/Dm 118 ml PO Q6H PRN #240 syrup 07/28/18 Unknown Rx [Bromfed Dm Cough Syrup] Doxycycline [Vibramycin CAP] 100 mg PO Q12HR #20 capsule 07/28/18 Unknown Rx levoFLOXacin [Levaquin TAB] 500 mg PO QDAY #20 tablet 07/28/18 Unknown Rx Allergies Allergy/AdvReac Type Severity Reaction Status Date / Time No Known Allergies Allergy Verified 10/31/17 17:43 ED Review of Systems ROS: Stated complaint: POSS URI Other details as noted in HPI Comment: All other systems reviewed and negative ENT: as per HPI, congestion. denies: ear pain Respiratory: see HPI Cardiovascular: as per HPI Endocrine: no symptoms reported Gastrointestinal: denies: abdominal pain, nausea, hematemesis, melena Genitourinary: dysuria Musculoskeletal: denies: back pain, joint swelling, arthralgia Skin: denies: rash, lesions Neurological: denies: headache, weakness, paresthesias Psychiatric: denies: anxiety, depression ED Past Medical Hx - Past Medical History Hx Hypertension: Yes Hx Diabetes: Yes Additional medical history: high cholesterol - Surgical History Past Surgical History?: No - Social History Smoking Status: Never Smoker Substance Use Type: None - Medications Home Medications: Home Medications Medication Instructions Recorded Confirmed Last Taken Type Amlodipine Besylate/Benazepril 1 tab PO QDAY 11/24/13 03/13/17 11/23/13 12:00 History [Lotrel 10-20 mg] ALBUTEROL Inhaler (OR & NICU) 2 puff IH QID PRN #7 inhalation 03/08/17 03/13/17 Unknown Rx [ProAir HFA Inhaler] Cyclobenzaprine [Flexeril 10 MG 10 mg PO TID PRN #14 tablet 03/08/17 03/13/17 Unknown Rx TAB] Diclofenac Sodium 75 mg PO BID #14 tablet. 03/08/17 03/13/17 Unknown Rx Doxycycline [Vibramycin CAP] 100 mg PO BID #42 capsule 03/13/17 Unknown Rx Phenazopyridine [Pyridium] 200 mg PO TID #9 tab 03/13/17 Unknown Rx Phenylephrine/Dm/Acetaminop/GG 10 ml PO Q6H PRN #1 liquid 10/31/17 Unknown Rx [Mucinex Fpya-Dwt-Puobijnfce Lq] Brompheniramine/Pseudoephed/Dm 118 ml PO Q6H PRN #240 syrup 07/28/18 Unknown Rx [Bromfed Dm Cough Syrup] Doxycycline [Vibramycin CAP] 100 mg PO Q12HR #20 capsule 07/28/18 Unknown Rx levoFLOXacin [Levaquin TAB] 500 mg PO QDAY #20 tablet 07/28/18 Unknown Rx ED Physical Exam - General Limitations: No Limitations General appearance: alert, in no apparent distress - Head Head exam: Present: atraumatic, normocephalic - Eye Eye exam: Present: normal appearance Pupils: Present: normal accommodation - ENT ENT exam: Present: normal exam, mucous membranes moist, other (nasal congestion with clear posterior nasal drainage. Mild tenderness to maxillary sinuses) - Expanded ENT Exam Expanded Mouth exam: Present: normal external inspection Teeth exam: Present: normal inspection Throat exam: Positive: normal inspection - Neck Neck exam: Present: normal inspection, full ROM. Absent: lymphadenopathy - Respiratory Respiratory exam: Present: normal lung sounds bilaterally. Absent: respiratory distress, chest wall tenderness, accessory muscle use - Cardiovascular Cardiovascular Exam: Present: regular rate, normal rhythm. Absent: systolic murmur, diastolic murmur, rubs, gallop - GI/Abdominal GI/Abdominal exam: Present: soft, normal bowel sounds - Rectal Rectal exam: Present: deferred - Extremities Exam Extremities exam: Present: normal inspection - Back Exam Back exam: Present: normal inspection - Neurological Exam Neurological exam: Present: alert, oriented X3 - Psychiatric Psychiatric exam: Present: normal affect, normal mood - Skin Skin exam: Present: warm, dry, intact, normal color. Absent: rash ED Course Vital Signs 07/28/18 01:52 Temperature 98 F Pulse Rate 67 Respiratory 16 Rate Blood Pressure 138/84 Blood Pressure 138/84 [Left] O2 Sat by Pulse 99 Oximetry Critical care attestation.: If time is entered above; I have spent that time in minutes in the direct care of this critically ill patient, excluding procedure time. ED Disposition Clinical Impression: Nasal congestion, Cough Disposition: DC-01 TO HOME OR SELFCARE Is pt being admited?: No Does the pt Need Aspirin: No Condition: Stable Instructions: Cold Symptoms (ED), Chronic Cough (ED), Analgesic/Antitussive/ Decongestant/Expectorant Combination (By mouth), Sinusitis (ED) Prescriptions: Brompheniramine/Pseudoephed/Dm [Bromfed Dm Cough Syrup] 118 ml PO Q6H PRN #240 syrup PRN Reason: cough and congestion Doxycycline [Vibramycin CAP] 100 mg PO Q12HR #20 capsule levoFLOXacin [Levaquin TAB] 500 mg PO QDAY #20 tablet
== END 2018-07-28 05:10 | disposition home or self-care (01) ==
LOC: ED 01:39
DX: R05 Cough (principal); J02.9 Acute pharyngitis, unspecified; R30.0 Dysuria; R09.81 Nasal congestion; J34.89 Other specified disorders of nose and nasal sinuses; I10 Essential (primary) hypertension; E11.9 Type 2 diabetes mellitus without complications; E78.00 Pure hypercholesterolemia, unspecified
CPT/HCPCS: 81001; 96372; 99283; J0696

== ENCOUNTER 2019-06-29 02:32 | Emergency (ER) | payer MEDICARE ==
[2019-06-29 07:56] LABS: Bacteria,Urine 1+ /HPF (Negative); Bilirubin,Urine NEG (Negative); Blood,Urine NEG (Negative); Color,Urine Yellow (Yellow); Protein,Urine <15 mg/dL mg/dL (Negative); Urobilinogen,Urine < 2.0 mg/dL (<2.0)
--- NOTE | 2019-06-29 08:39 | Emergency Department Report ---
ED General Adult HPI - General Chief complaint: Back Pain/Injury Stated complaint: PENILE PAIN/LOWER BACK PAIN Time Seen by Provider: 06/29/19 07:35 Source: patient Mode of arrival: Ambulatory Limitations: No Limitations - History of Present Illness Initial comments: 53-year-old -[place] as well as department complaining of a 3-4 day history of progressively worsening dysuria and irritation and sensitivity. He also has some mild tingling to his testicular region, but no rash and denies any possibility of an STD stating he's specifically reactive. Problems initially started back in February and continues to irritate him at present reports no hematuria, no hematemesis hematochezia. No lower abdominal pain or flank pain. o, fevers, chills, sweats Consistency: constant Improves with: none Worsens with: none Associated Symptoms: denies: chest pain, cough, diaphoresis, malaise, rash, shortness of breath, weakness Treatments Prior to Arrival: none - Related Data Home Medications Medication Instructions Recorded Confirmed Last Taken Amlodipine Besylate/Benazepril 1 tab PO QDAY 11/24/13 03/13/17 11/23/13 12:00 [Lotrel 10-20 mg] Previous Rx's Medication Instructions Recorded Last Taken Type ALBUTEROL Inhaler (OR & NICU) 2 puff IH QID PRN #7 inhalation 03/08/17 Unknown Rx [ProAir HFA Inhaler] Cyclobenzaprine [Flexeril 10 MG 10 mg PO TID PRN #14 tablet 03/08/17 Unknown Rx TAB] Diclofenac Sodium 75 mg PO BID #14 tablet. 03/08/17 Unknown Rx DOXYCYCLINE Hyclate [Vibramycin 100 mg PO BID #42 capsule 03/13/17 Unknown Rx CAP] Phenazopyridine [Pyridium] 200 mg PO TID #9 tab 03/13/17 Unknown Rx Phenylephrine/Dm/Acetaminop/GG 10 ml PO Q6H PRN #1 liquid 10/31/17 Unknown Rx [Mucinex Hpad-Agv-Ltsbbsowim Lq] Brompheniramine/Pseudoephed/Dm 118 ml PO Q6H PRN #240 syrup 07/28/18 Unknown Rx [Bromfed Dm Cough Syrup] DOXYCYCLINE Hyclate [Vibramycin 100 mg PO Q12HR #20 capsule 07/28/18 Unknown Rx CAP] levoFLOXacin [Levaquin TAB] 500 mg PO QDAY #20 tablet 07/28/18 Unknown Rx Phenazopyridine [Pyridium] 200 mg PO TID #9 tab 06/29/19 Unknown Rx Sulfamethoxazole/Trimethoprim 1 each PO BID #14 tablet 06/29/19 Unknown Rx [Bactrim DS TAB] Allergies Allergy/AdvReac Type Severity Reaction Status Date / Time No Known Allergies Allergy Verified 10/31/17 17:43 ED Review of Systems ROS: Stated complaint: PENILE PAIN/LOWER BACK PAIN Other details as noted in HPI Comment: All other systems reviewed and negative ED Past Medical Hx - Past Medical History Previous Medical History?: Yes Hx Hypertension: Yes Hx Diabetes: Yes Additional medical history: high cholesterol - Surgical History Past Surgical History?: No - Social History Smoking Status: Never Smoker Substance Use Type: None - Medications Home Medications: Home Medications Medication Instructions Recorded Confirmed Last Taken Type Amlodipine Besylate/Benazepril 1 tab PO QDAY 11/24/13 03/13/17 11/23/13 12:00 History [Lotrel 10-20 mg] ALBUTEROL Inhaler (OR & NICU) 2 puff IH QID PRN #7 inhalation 03/08/17 03/13/17 Unknown Rx [ProAir HFA Inhaler] Cyclobenzaprine [Flexeril 10 MG 10 mg PO TID PRN #14 tablet 03/08/17 03/13/17 Unknown Rx TAB] Diclofenac Sodium 75 mg PO BID #14 tablet. 03/08/17 03/13/17 Unknown Rx DOXYCYCLINE Hyclate [Vibramycin 100 mg PO BID #42 capsule 03/13/17 Unknown Rx CAP] Phenazopyridine [Pyridium] 200 mg PO TID #9 tab 03/13/17 Unknown Rx Phenylephrine/Dm/Acetaminop/GG 10 ml PO Q6H PRN #1 liquid 10/31/17 Unknown Rx [Mucinex Wpmj-Lqh-Ricisojjtk Lq] Brompheniramine/Pseudoephed/Dm 118 ml PO Q6H PRN #240 syrup 07/28/18 Unknown Rx [Bromfed Dm Cough Syrup] DOXYCYCLINE Hyclate [Vibramycin 100 mg PO Q12HR #20 capsule 07/28/18 Unknown Rx CAP] levoFLOXacin [Levaquin TAB] 500 mg PO QDAY #20 tablet 07/28/18 Unknown Rx Phenazopyridine [Pyridium] 200 mg PO TID #9 tab 06/29/19 Unknown Rx Sulfamethoxazole/Trimethoprim 1 each PO BID #14 tablet 06/29/19 Unknown Rx [Bactrim DS TAB] ED Physical Exam - General Limitations: No Limitations General appearance: alert, in no apparent distress - Head Head exam: Present: atraumatic, normocephalic - Eye Eye exam: Present: normal appearance - ENT ENT exam: Present: mucous membranes moist - Neck Neck exam: Present: normal inspection - Respiratory Respiratory exam: Present: normal lung sounds bilaterally. Absent: respiratory distress - Cardiovascular Cardiovascular Exam: Present: regular rate, normal rhythm. Absent: systolic murmur, diastolic murmur, rubs, gallop - GI/Abdominal GI/Abdominal exam: Present: soft, normal bowel sounds - Rectal Rectal exam: Present: deferred - Extremities Exam Extremities exam: Present: normal inspection - Back Exam Back exam: Present: normal inspection - Neurological Exam Neurological exam: Present: alert, oriented X3 - Psychiatric Psychiatric exam: Present: normal affect, normal mood - Skin Skin exam: Present: warm, dry, intact, normal color. Absent: rash ED Medical Decision Making - Medical Decision Making 53-year-old -[place] male presents much department complaining of dysur ia and increased urgency was taken off and on for the last few months. No trauma, hematuria, no possibility of STDs. Laboratory data didn't show an overt urinary tract infection. They still have subclinical UTI or an atypical UTI or sterile pyuria. Sinus: Home and have him to be followed up in 1 week for reevaluation. Critical care attestation.: If time is entered above; I have spent that time in minutes in the direct care of this critically ill patient, excluding procedure time. ED Disposition Clinical Impression: Dysuria Disposition: DC-01 TO HOME OR SELFCARE Is pt being admited?: No Does the pt Need Aspirin: No Condition: Stable Instructions: Dysuria (ED) Prescriptions: Sulfamethoxazole/Trimethoprim [Bactrim DS TAB] 1 each PO BID #14 tablet Phenazopyridine [Pyridium] 200 mg PO TID #9 tab Referrals: ELIAN FRY MD [Primary Care Provider] - 3-5 Days
== END 2019-06-29 08:40 | disposition home or self-care (01) ==
LOC: ED 02:32
DX: R30.0 Dysuria (principal); R20.2 Paresthesia of skin; I10 Essential (primary) hypertension; E11.9 Type 2 diabetes mellitus without complications
CPT/HCPCS: 81001; 87591

== ENCOUNTER 2019-11-28 06:25 | Emergency (ER) | payer MEDICARE ==
[2019-11-28 06:59] LABS: Bilirubin,Urine NEG (Negative); Blood,Urine SM (Negative); Color,Urine Yellow (Yellow); Mucus,Urine FEW /HPF; Protein,Urine <15 mg/dL mg/dL (Negative)
[2019-11-28 07:10] LABS: Basophils # (Auto) 0.1 K/mm3 (0.0-0.1); Eosinophils # (Auto) 0.1 K/mm3 (0.0-0.4); Eosinophils % (Auto) 2.2 % (0.0-4.3); Hematocrit 40.4 % (35.5-45.6); Hemoglobin 13.3 gm/dl (11.8-15.2); Lymphocytes # (Auto) 3.3 K/mm3 (1.2-5.4); Lymphocytes % (Auto) 52.1 % (13.4-35.0); Mean Corpuscular HGB Conc 33 % (32-34); Mean Corpuscular Volume 90 fl (84-94); Monocytes # (Auto) 0.6 K/mm3 (0.0-0.8); Monocytes % (Auto) 9.2 % (0.0-7.3); Platelet Count 224 K/mm3 (140-440)
[2019-11-28 07:36] LABS: Alanine Aminotransferase 13 units/L (7-56); Albumin 4.3 g/dL (3.9-5); BUN/Creatinine Ratio 20; Blood Urea Nitrogen 20 mg/dL (9-20); Calcium 10.1 mg/dL (8.4-10.2); Hemolysis Index 23
[2019-11-28] MEDS ORDERED: KETOROLAC 10 MG TAB PO ONE (12:00)
--- NOTE | 2019-11-28 13:30 | Cat Scan Report ---
CT ABDOMEN AND PELVIS WITHOUT CONTRAST HISTORY: left flank pain COMPARISON: None. TECHNIQUE: Axial CT images were obtained through the abdomen and pelvis without IV contrast. Sagittal and coronal reformatted images. All CT scans at this location are performed using CT dose reduction for ALARA by means of automated exposure control. FINDINGS: CT ABDOMEN: Lung Bases: Clear. Liver: No significant abnormality. Biliary: No significant abnormality. Spleen: No significant abnormality. Unenlarged. Pancreas: No significant abnormality. Adrenals: No significant abnormality. Kidneys: No significant abnormality. Lymphatics: No lymphadenopathy. Vasculature: No significant abnormality. Bowel/Peritoneum: No significant abnormality. No free air. No free fluid. Normal appendix. CT PELVIS: : A punctate calcification is identified within the bladder on axial image 162. Recently passed sto ne The bladder, distal ureters and prostate gland are unremarkable otherwise. Osseous Structures: Intact. Moderate to severe degenerative disc disease at L5-S1. Additional Findings: None IMPRESSION: Punctate calcification in the bladder which could represent a recently passed stone. The kidneys are unremarkable. No acute inflammatory process is appreciated in the abdomen or pelvis. Signer Name: Lázaro Dickens Jr, MD Signed: 11/28/2019 1:25 PM Workstation Name: [id number]
[2019-11-28 13:39] VITALS: BP 140/88
--- NOTE | 2019-11-28 13:46 | Emergency Department Report ---
ED Male HPI - General Chief complaint: Abdominal Pain Stated complaint: PRESCRIPTION REFILL Time Seen by Provider: 11/28/19 10:03 Source: patient Mode of arrival: Ambulatory Limitations: No Limitations - History of Present Illness Initial comments: This is a 54-year-old male nontoxic, well nourished in appearance, no acute signs of distress presents to the ED with c/o of left flank pain with tingling sensation while urinating. Patient otherwise denies any urinary symptoms. Patient denies any n/v. Patient describes flank pain as cramping and aching with level of 3/10. Patient denies chest pain, short of breath, fever, chills, headache, stiff neck, numbness or tingling. Patient denies any diarrhea or constipation. Patient denies any recent travels. Patient denies allergies. MD Complaint: other (left flank pain) -: days(s) Radiation: none Severity: mild Severity scale (0 -10): 3 Quality: other (cramping) Consistency: constant Improves with: none Worsens with: none denies other symptoms. denies: discharge, swelling, mass, rash, urinary retention, blood in urine, dysuria, fever, nausea/vomiting, incontinence - Related Data Home Medications Medication Instructions Recorded Confirmed Last Taken Amlodipine Besylate/Benazepril 1 tab PO QDAY 11/24/13 03/13/17 11/23/13 12:00 [Lotrel 10-20 mg] Previous Rx's Medication Instructions Recorded Last Taken Type Albuterol INH(or & Nicu Only) 2 puff IH QID PRN #7 inhalation 03/08/17 Unknown Rx [ProAir HFA Inhaler] Cyclobenzaprine [Flexeril 10 MG 10 mg PO TID PRN #14 tablet 03/08/17 Unknown Rx TAB] Diclofenac Sodium 75 mg PO BID #14 tablet. 03/08/17 Unknown Rx DOXYCYCLINE Hyclate [Vibramycin 100 mg PO BID #42 capsule 03/13/17 Unknown Rx CAP] Phenazopyridine [Pyridium] 200 mg PO TID #9 tab 03/13/17 Unknown Rx Phenylephrine/Dm/Acetaminop/GG 10 ml PO Q6H PRN #1 liquid 10/31/17 Unknown Rx [Mucinex Tsnl-Mdf-Zbitnxlalz Lq] Brompheniramine/Pseudoephed/Dm 118 ml PO Q6H PRN #240 syrup 07/28/18 Unknown Rx [Bromfed Dm Cough Syrup] DOXYCYCLINE Hyclate [Vibramycin 100 mg PO Q12HR #20 capsule 07/28/18 Unknown Rx CAP] levoFLOXacin [Levaquin TAB] 500 mg PO QDAY #20 tablet 07/28/18 Unknown Rx Phenazopyridine [Pyridium] 200 mg PO TID #9 tab 06/29/19 Unknown Rx Sulfamethoxazole/Trimethoprim 1 each PO BID #14 tablet 06/29/19 Unknown Rx [Bactrim DS TAB] Naproxen 500 mg PO Q12H PRN #20 tablet 11/28/19 Unknown Rx Allergies Allergy/AdvReac Type Severity Reaction Status Date / Time No Known Allergies Allergy Verified 10/31/17 17:43 ED Review of Systems ROS: Stated complaint: PRESCRIPTION REFILL Other details as noted in HPI Constitutional: denies: chills, fever Eyes: denies: eye pain, eye discharge, vision change ENT: denies: ear pain, throat pain Respiratory: denies: cough, shortness of breath, wheezing Cardiovascular: denies: chest pain, palpitations Endocrine: no symptoms reported Gastrointestinal: denies: abdominal pain, nausea, vomiting, diarrhea Genitourinary: denies: urgency, dysuria Musculoskeletal: denies: back pain, joint swelling, arthralgia Skin: denies: rash, lesions Neurological: denies: headache, weakness, paresthesias Psychiatric: denies: anxiety, depression Hematological/Lymphatic: denies: easy bleeding, easy bruising ED Past Medical Hx - Past Medical History Previous Medical History?: Yes Hx Hypertension: Yes Hx Diabetes: Yes Additional medical history: high cholesterol - Surgical History Past Surgical History?: No - Social History Smoking Status: Never Smoker Substance Use Type: None - Medications Home Medications: Home Medications Medication Instructions Recorded Confirmed Last Taken Type Amlodipine Besylate/Benazepril 1 tab PO QDAY 11/24/13 03/13/17 11/23/13 12:00 History [Lotrel 10-20 mg] Albuterol INH(or & Nicu Only) 2 puff IH QID PRN #7 inhalation 03/08/17 03/13/17 Unknown Rx [ProAir HFA Inhaler] Cyclobenzaprine [Flexeril 10 MG 10 mg PO TID PRN #14 tablet 03/08/17 03/13/17 Unknown Rx TAB] Diclofenac Sodium 75 mg PO BID #14 tablet. 03/08/17 03/13/17 Unknown Rx DOXYCYCLINE Hyclate [Vibramycin 100 mg PO BID #42 capsule 03/13/17 Unknown Rx CAP] Phenazopyridine [Pyridium] 200 mg PO TID #9 tab 03/13/17 Unknown Rx Phenylephrine/Dm/Acetaminop/GG 10 ml PO Q6H PRN #1 liquid 10/31/17 Unknown Rx [Mucinex Gmxr-Guu-Tpcmoacmfm Lq] Brompheniramine/Pseudoephed/Dm 118 ml PO Q6H PRN #240 syrup 07/28/18 Unknown Rx [Bromfed Dm Cough Syrup] DOXYCYCLINE Hyclate [Vibramycin 100 mg PO Q12HR #20 capsule 07/28/18 Unknown Rx CAP] levoFLOXacin [Levaquin TAB] 500 mg PO QDAY #20 tablet 07/28/18 Unknown Rx Phenazopyridine [Pyridium] 200 mg PO TID #9 tab 06/29/19 Unknown Rx Sulfamethoxazole/Trimethoprim 1 each PO BID #14 tablet 06/29/19 Unknown Rx [Bactrim DS TAB] Naproxen 500 mg PO Q12H PRN #20 tablet 11/28/19 Unknown Rx ED Physical Exam - General Limitations: No Limitations General appearance: alert, in no apparent distress - Head Head exam: Present: atraumatic, normocephalic - Neck Neck exam: Present: normal inspection, full ROM. Absent: tenderness, meningismus, lymphadenopathy - GI/Abdominal GI/Abdominal exam: Present: soft, normal bowel sounds. Absent: distended, tenderness, guarding, rebound, rigid, diminished bowel sounds - Extremities Exam Extremities exam: Present: normal inspection, full ROM - Back Exam Back exam: Present: normal inspection, full ROM. Absent: tenderness, CVA tenderness (R), CVA tenderness (L), muscle spasm, paraspinal tenderness, vertebral tenderness, rash noted - Neurological Exam Neurological exam: Present: alert, oriented X3, normal gait - Psychiatric Psychiatric exam: Present: normal affect, normal mood - Skin Skin exam: Present: warm, dry, intact, normal color. Absent: rash ED Course - Reevaluation(s) Reevaluation #1: 11/28/19 13:47 Patient is speaking in full sentences with no signs of distress noted. ED Medical Decision Making - Lab Data Result diagrams: 11/28/19 06:50 11/28/19 06:50 - Medical Decision Making This is a 54-year-old male that presents with kidney stone that is currently passed. Patient is stable and was examined by me. There is no abdominal tenderness. Negative signs of symptoms of appendicitis. Labs obtained. UA obtained. CT of abdomen obtained and dictated by the radiologist. Patient is notified of the report with no questions noted by the patient. Vital signs are stable prior to discharge. Patient received medical treatment in the ED which patient stated symptoms has resovled and subsided. Patient was also instructed to Follow-up with a primary care doctor in 3-5 days or if symptoms worsen and continue return to emergency room as soon as possible. At time of discharge, the patient does not seem toxic or ill in appearance. No acute signs of distr ess noted. Patient agrees to discharge treatment plan of care. No further questions noted by the patient. Critical care attestation.: If time is entered above; I have spent that time in minutes in the direct care of this critically ill patient, excluding procedure time. ED Disposition Clinical Impression: Pain due to calculus of kidney Disposition: DC-01 TO HOME OR SELFCARE Is pt being admited?: No Does the pt Need Aspirin: No Condition: Stable Additional Instructions: Follow-up with a primary care doctor in 3-5 days or if symptoms worsen and continue return to emergency room as soon as possible. Prescriptions: Naproxen 500 mg PO Q12H PRN #20 tablet PRN Reason: Pain, Moderate (4-6) Referrals: ELIAN FRY MD [Primary Care Provider] - 3-5 Days PRIMARY MD KATERINA [Referring] - 3-5 Days BENJAMIN REEVES MD [Staff Physician] - 3-5 Days [facility] [Outside] - 3-5 Days Forms: Work/School Release Form(ED)
== END 2019-11-28 14:07 | disposition home or self-care (01) ==
LOC: ED 06:25
DX: N20.0 Calculus of kidney (principal); I10 Essential (primary) hypertension; E11.9 Type 2 diabetes mellitus without complications; E78.00 Pure hypercholesterolemia, unspecified; Z79.899 Other long term (current) drug therapy
CPT/HCPCS: 36415; 74176; 80053; 81001; 85025; 87086

== ENCOUNTER 2019-12-04 06:04 | Emergency (ER) | payer MEDICARE ==
[2019-12-04 07:03] LABS: Bilirubin,Urine NEG (Negative); Blood,Urine NEG (Negative); Color,Urine Yellow (Yellow); Mucus,Urine 1+ /HPF; Protein,Urine <15 mg/dL mg/dL (Negative); WBC,Urine < 1.0 /HPF (0.0-6.0)
[2019-12-04 07:33] LABS: Basophils % (Auto) 0.7 % (0.0-1.8); Eosinophils # (Auto) 0.1 K/mm3 (0.0-0.4); Eosinophils % (Auto) 1.1 % (0.0-4.3); Hematocrit 39.7 % (35.5-45.6); Hemoglobin 13.1 gm/dl (11.8-15.2); Lymphocytes % (Auto) 36.1 % (13.4-35.0); Mean Corpuscular HGB Conc 33 % (32-34); Mean Corpuscular Volume 91 fl (84-94); Monocytes # (Auto) 0.5 K/mm3 (0.0-0.8); Monocytes % (Auto) 9.5 % (0.0-7.3); Platelet Count 214 K/mm3 (140-440); Red Blood Count 4.39 M/mm3 (3.65-5.03); Red Cell Distribution Width 13.3 % (13.2-15.2)
[2019-12-04 08:02] LABS: Alanine Aminotransferase 11 units/L (7-56); Albumin 4.4 g/dL (3.9-5); BUN/Creatinine Ratio 15; Blood Urea Nitrogen 15 mg/dL (9-20); Calcium 9.7 mg/dL (8.4-10.2); Hemolysis Index 12
[2019-12-04] MEDS ORDERED: AZITHROMYCIN 250 MG TAB PO ONE (08:28)
[2019-12-04] MEDS ORDERED: LIDOCAINE-MPF (1%) 10 MG/1 ML VIAL 5 ML INFILTRATI ONE (08:28)
[2019-12-04 08:33] VITALS: BP 126/82
--- NOTE | 2019-12-04 08:34 | Emergency Department Report ---
ED Male HPI - General Chief complaint: Abdominal Pain Stated complaint: LEFT SIDE FLANK PAIN Source: patient Mode of arrival: Ambulatory Limitations: No Limitations - History of Present Illness Initial comments: low back soreness dysuria, pain with ejaculation no fever, no abd pain, no vomiting Complaint: dysuria -: Gradual, week(s) (2) Location: penis Radiation: none Severity: mild Quality: aching Consistency: constant Improves with: none Worsens with: none denies other symptoms - Related Data Home Medications Medication Instructions Recorded Confirmed Last Taken Amlodipine Besylate/Benazepril 1 tab PO QDAY 11/24/13 03/13/17 11/23/13 12:00 [Lotrel 10-20 mg] Previous Rx's Medication Instructions Recorded Last Taken Type Albuterol INH(or & Nicu Only) 2 puff IH QID PRN #7 inhalation 03/08/17 Unknown Rx [ProAir HFA Inhaler] Cyclobenzaprine [Flexeril 10 MG 10 mg PO TID PRN #14 tablet 03/08/17 Unknown Rx TAB] Diclofenac Sodium 75 mg PO BID #14 tablet. 03/08/17 Unknown Rx DOXYCYCLINE Hyclate [Vibramycin 100 mg PO BID #42 capsule 03/13/17 Unknown Rx CAP] Phenazopyridine [Pyridium] 200 mg PO TID #9 tab 03/13/17 Unknown Rx Phenylephrine/Dm/Acetaminop/GG 10 ml PO Q6H PRN #1 liquid 10/31/17 Unknown Rx [Mucinex Nrwp-Nzx-Tajmoibesb Lq] Brompheniramine/Pseudoephed/Dm 118 ml PO Q6H PRN #240 syrup 07/28/18 Unknown Rx [Bromfed Dm Cough Syrup] DOXYCYCLINE Hyclate [Vibramycin 100 mg PO Q12HR #20 capsule 07/28/18 Unknown Rx CAP] levoFLOXacin [Levaquin TAB] 500 mg PO QDAY #20 tablet 07/28/18 Unknown Rx Phenazopyridine [Pyridium] 200 mg PO TID #9 tab 06/29/19 Unknown Rx Naproxen 500 mg PO Q12H PRN #20 tablet 11/28/19 Unknown Rx Sulfamethoxazole/Trimethoprim 1 each PO BID #60 tablet 12/04/19 Unknown Rx [Bactrim DS TAB] Allergies Allergy/AdvReac Type Severity Reaction Status Date / Time No Known Allergies Allergy Verified 10/31/17 17:43 ED Review of Systems ROS: Stated complaint: LEFT SIDE FLANK PAIN Other details as noted in HPI Comment: All other systems reviewed and negative Genitourinary: as per HPI ED Past Medical Hx - Past Medical History Previous Medical History?: Yes Hx Hypertension: Yes Hx Diabetes: Yes Additional medical history: high cholesterol - Surgical History Past Surgical History?: No - Social History Smoking Status: Never Smoker Substance Use Type: None - Medications Home Medications: Home Medications Medication Instructions Recorded Confirmed Last Taken Type Amlodipine Besylate/Benazepril 1 tab PO QDAY 11/24/13 03/13/17 11/23/13 12:00 History [Lotrel 10-20 mg] Albuterol INH(or & Nicu Only) 2 puff IH QID PRN #7 inhalation 03/08/17 03/13/17 Unknown Rx [ProAir HFA Inhaler] Cyclobenzaprine [Flexeril 10 MG 10 mg PO TID PRN #14 tablet 03/08/17 03/13/17 Unknown Rx TAB] Diclofenac Sodium 75 mg PO BID #14 tablet. 03/08/17 03/13/17 Unknown Rx DOXYCYCLINE Hyclate [Vibramycin 100 mg PO BID #42 capsule 03/13/17 Unknown Rx CAP] Phenazopyridine [Pyridium] 200 mg PO TID #9 tab 03/13/17 Unknown Rx Phenylephrine/Dm/Acetaminop/GG 10 ml PO Q6H PRN #1 liquid 10/31/17 Unknown Rx [Mucinex Igmb-Kzd-Awbgvjurlh Lq] Brompheniramine/Pseudoephed/Dm 118 ml PO Q6H PRN #240 syrup 07/28/18 Unknown Rx [Bromfed Dm Cough Syrup] DOXYCYCLINE Hyclate [Vibramycin 100 mg PO Q12HR #20 capsule 07/28/18 Unknown Rx CAP] levoFLOXacin [Levaquin TAB] 500 mg PO QDAY #20 tablet 07/28/18 Unknown Rx Phenazopyridine [Pyridium] 200 mg PO TID #9 tab 06/29/19 Unknown Rx Naproxen 500 mg PO Q12H PRN #20 tablet 11/28/19 Unknown Rx Sulfamethoxazole/Trimethoprim 1 each PO BID #60 tablet 12/04/19 Unknown Rx [Bactrim DS TAB] ED Physical Exam - General Limitations: No Limitations General appearance: alert, in no apparent distress - Head Head exam: Present: atraumatic, normocephalic - Eye Eye exam: Present: normal appearance - ENT ENT exam: Present: mucous membranes moist - Neck Neck exam: Present: normal inspection - Respiratory Respiratory exam: Present: normal lung sounds bilaterally. Absent: respiratory distress - Cardiovascular Cardiovascular Exam: Present: regular rate, normal rhythm. Absent: systolic murmur, diastolic murmur, rubs, gallop - GI/Abdominal GI/Abdominal exam: Present: soft, normal bowel sounds. Absent: distended, tenderness, guarding - Rectal Rectal exam: Present: deferred - Extremities Exam Extremities exam: Present: normal inspection - Back Exam Back exam: Present: normal inspection - Neurological Exam Neurological exam: Present: alert, oriented X3 - Psychiatric Psychiatric exam: Present: normal affect, normal mood - Skin Skin exam: Present: warm, dry, intact, normal color. Absent: rash ED Course Vital Signs 12/04/19 12/04/19 06:12 08:27 Temperature 97.9 F Pulse Rate 71 Respiratory 18 18 Rate Blood Pressure 126/82 O2 Sat by Pulse 98 99 Oximetry ED Medical Decision Making - Lab Data Result diagrams: 12/04/19 07:04 12/04/19 07:04 - Medical Decision Making patient w symptoms of prostatitis no testicular pain or swelling states had similar sx before and bactrim helped labs and ua clear exam benign rectal deferred will cover for STI, refill bactrim, refer urology - Differential Diagnosis prostatitis, uti Critical care attestation.: If time is entered above; I have spent that time in minutes in the direct care of this critically ill patient, excluding procedure time. ED Disposition Clinical Impression: Prostatitis Qualifiers: Prostatitis type: acute Qualified Code(s): N41.0 - Acute prostatitis Disposition: - TO HOME OR SELFCARE Is pt being admited?: No Condition: Good Instructions: Prostatitis (ED) Prescriptions: Sulfamethoxazole/Trimethoprim [Bactrim DS TAB] 1 each PO BID #60 tablet Referrals: PRIMARY CARE, [Primary Care Provider] - 3-5 Days SKIP HUSSEIN MD [Staff Physician] - 3-5 Days Time of Disposition: 08:34
== END 2019-12-04 09:11 | disposition home or self-care (01) ==
LOC: ED 06:04
DX: N41.9 Inflammatory disease of prostate, unspecified (principal); I10 Essential (primary) hypertension; E11.9 Type 2 diabetes mellitus without complications; E78.00 Pure hypercholesterolemia, unspecified; Z79.899 Other long term (current) drug therapy
CPT/HCPCS: 36415; 80053; 81001; 85025; 96372; 99283; J0696

== ENCOUNTER 2020-06-21 17:20 | Emergency (ER) | payer MEDICARE ==
[2020-06-21 17:30] VITALS: BP 127/81
--- NOTE | 2020-06-21 18:29 | Event Note ---
ED Screening Note ED Screening Note: cough with mucus production chest congestion chest soreness with cough nausea chills no vomiting no diarrhea PMHx HTN, HLD no allergies to meds non smoker This initial assessment/diagnostic orders/clinical plan/treatment(s) is/are subject to change based on patients health status, clinical progression and re- assessment by fellow clinical providers in the ED. Further treatment and workup at subsequent clinical providers discretion. Patient/guardian urged not to elope from the ED as their condition may be serious if not clinically assessed and managed. Initial orders include: xr chest
--- NOTE | 2020-06-21 19:09 | XRay Report ---
CHEST 2 VIEWS INDICATION / CLINICAL INFORMATION: productive cough. COMPARISON: 02/16/2017 FINDINGS: SUPPORT DEVICES: None. HEART / MEDIASTINUM: No significant abnormality. LUNGS / PLEURA: No significant pulmonary or pleural abnormality. No pneumothorax. ADDITIONAL FINDINGS: No significant additional findings. IMPRESSION: 1. No acute findings. No significant interval change. Signer Name: Fredis Burris MD Signed: 06/21/2020 7:04 PM Workstation Name: [id number]
[2020-06-21 19:14] LABS: Bilirubin,Urine NEG (Negative); Blood,Urine NEG (Negative); Color,Urine Yellow (Yellow); Protein,Urine <15 mg/dL mg/dL (Negative); Urobilinogen,Urine < 2.0 mg/dL (<2.0); WBC,Urine < 1.0 /HPF (0.0-6.0)
[2020-06-21 19:18] LABS: Basophils # (Auto) 0.1 K/mm3 (0.0-0.1); Basophils % (Auto) 0.8 % (0.0-1.8); Eosinophils # (Auto) 0.2 K/mm3 (0.0-0.4); Hematocrit 39.7 % (35.5-45.6); Hemoglobin 13.8 gm/dl (11.8-15.2); Lymphocytes # (Auto) 2.9 K/mm3 (1.2-5.4); Lymphocytes % (Auto) 37.2 % (13.4-35.0); Mean Corpuscular HGB Conc 35 % (32-34); Mean Corpuscular Volume 89 fl (84-94); Monocytes # (Auto) 0.9 K/mm3 (0.0-0.8); Monocytes % (Auto) 11.6 % (0.0-7.3); Platelet Count 242 K/mm3 (140-440); Red Blood Count 4.43 M/mm3 (3.65-5.03); Red Cell Distribution Width 13.5 % (13.2-15.2)
[2020-06-21 19:46] LABS: Alanine Aminotransferase 19 units/L (7-56); Albumin 4.4 g/dL (3.9-5); BUN/Creatinine Ratio 23; Blood Urea Nitrogen 23 mg/dL (9-20); Calcium 10.3 mg/dL (8.4-10.2); Hemolysis Index 10
--- NOTE | 2020-06-21 21:17 | Emergency Department Report ---
- General Chief Complaint: Upper Respiratory Infection Stated Complaint: COLD SX Time Seen by Provider: 06/21/20 18:28 Source: patient Mode of arrival: Ambulatory Limitations: No Limitations - Related Data Home Medications Medication Instructions Recorded Confirmed Last Taken Amlodipine Besylate/Benazepril 1 tab PO QDAY 11/24/13 03/13/17 11/23/13 12:00 [Lotrel 10-20 mg] Previous Rx's Medication Instructions Recorded Last Taken Type Albuterol Mdi (or & Nicu Only) 2 puff IH QID PRN #7 inhalation 03/08/17 Unknown Rx [ProAir HFA Inhaler] Cyclobenzaprine [Flexeril 10 MG 10 mg PO TID PRN #14 tablet 03/08/17 Unknown Rx TAB] Diclofenac Sodium 75 mg PO BID #14 tablet. 03/08/17 Unknown Rx DOXYCYCLINE Hyclate [Vibramycin 100 mg PO BID #42 capsule 03/13/17 Unknown Rx CAP] Phenazopyridine [Pyridium] 200 mg PO TID #9 tab 03/13/17 Unknown Rx Phenylephrine/Dm/Acetaminop/GG 10 ml PO Q6H PRN #1 liquid 10/31/17 Unknown Rx [Mucinex Slhr-Mah-Ekbmncbuke Lq] Brompheniramine/Pseudoephed/Dm 118 ml PO Q6H PRN #240 syrup 07/28/18 Unknown Rx [Bromfed Dm Cough Syrup] DOXYCYCLINE Hyclate [Vibramycin 100 mg PO Q12HR #20 capsule 07/28/18 Unknown Rx CAP] levoFLOXacin [Levaquin TAB] 500 mg PO QDAY #20 tablet 07/28/18 Unknown Rx Phenazopyridine [Pyridium] 200 mg PO TID #9 tab 06/29/19 Unknown Rx Naproxen 500 mg PO Q12H PRN #20 tablet 11/28/19 Unknown Rx Sulfamethoxazole/Trimethoprim 1 each PO BID #60 tablet 12/04/19 Unknown Rx [Bactrim DS TAB] Chlorhexidine Mouthwash [Peridex] 10 ml MM BID #473 bottle 01/04/20 Unknown Rx predniSONE [Deltasone] 20 mg PO QDAY #3 tab 01/04/20 Unknown Rx Azithromycin [Zithromax] 250 mg PO DAILY #6 tablet 06/21/20 Unknown Rx Allergies Allergy/AdvReac Type Severity Reaction Status Date / Time No Known Allergies Allergy Verified 10/31/17 17:43 ED Review of Systems ROS: Stated complaint: COLD SX Other details as noted in HPI Comment: All other systems reviewed and negative ED Past Medical Hx - Past Medical History Previous Medical History?: Yes Hx Hypertension: Yes Hx Diabetes: Yes Additional medical history: high cholesterol - Social History Smoking Status: Never Smoker Substance Use Type: None - Medications Home Medications: Home Medications Medication Instructions Recorded Confirmed Last Taken Type Amlodipine Besylate/Benazepril 1 tab PO QDAY 11/24/13 03/13/17 11/23/13 12:00 History [Lotrel 10-20 mg] Albuterol Mdi (or & Nicu Only) 2 puff IH QID PRN #7 inhalation 03/08/17 03/13/17 Unknown Rx [ProAir HFA Inhaler] Cyclobenzaprine [Flexeril 10 MG 10 mg PO TID PRN #14 tablet 03/08/17 03/13/17 Unknown Rx TAB] Diclofenac Sodium 75 mg PO BID #14 tablet. 03/08/17 03/13/17 Unknown Rx DOXYCYCLINE Hyclate [Vibramycin 100 mg PO BID #42 capsule 03/13/17 Unknown Rx CAP] Phenazopyridine [Pyridium] 200 mg PO TID #9 tab 03/13/17 Unknown Rx Phenylephrine/Dm/Acetaminop/GG 10 ml PO Q6H PRN #1 liquid 10/31/17 Unknown Rx [Mucinex Jnqc-Mto-Lmjtapuoxq Lq] Brompheniramine/Pseudoephed/Dm 118 ml PO Q6H PRN #240 syrup 07/28/18 Unknown Rx [Bromfed Dm Cough Syrup] DOXYCYCLINE Hyclate [Vibramycin 100 mg PO Q12HR #20 capsule 07/28/18 Unknown Rx CAP] levoFLOXacin [Levaquin TAB] 500 mg PO QDAY #20 tablet 07/28/18 Unknown Rx Phenazopyridine [Pyridium] 200 mg PO TID #9 tab 06/29/19 Unknown Rx Naproxen 500 mg PO Q12H PRN #20 tablet 11/28/19 Unknown Rx Sulfamethoxazole/Trimethoprim 1 each PO BID #60 tablet 12/04/19 Unknown Rx [Bactrim DS TAB] Chlorhexidine Mouthwash [Peridex] 10 ml MM BID #473 bottle 03/12/20 Unknown Rx predniSONE [Deltasone] 20 mg PO QDAY #3 tab 01/04/20 Unknown Rx Azithromycin [Zithromax] 250 mg PO DAILY #6 tablet 06/21/20 Unknown Rx ED Physical Exam - General Limitations: No Limitations General appearance: alert, in no apparent distress - Head Head exam: Present: atraumatic, normocephalic - Eye Eye exam: Present: normal appearance, EOMI - ENT ENT exam: Present: mucous membranes moist - Neck Neck exam: Present: normal inspection - Respiratory Respiratory exam: Present: normal lung sounds bilaterally. Absent: respiratory distress - Cardiovascular Cardiovascular Exam: Present: regular rate, normal rhythm. Absent: systolic murmur, diastolic murmur, rubs, gallop - GI/Abdominal GI/Abdominal exam: Present: soft, normal bowel sounds - Rectal Rectal exam: Present: deferred - Extremities Exam Extremities exam: Present: normal inspection - Back Exam Back exam: Present: normal inspection - Neurological Exam Neurological exam: Present: alert, oriented X3 - Psychiatric Psychiatric exam: Present: normal affect, normal mood - Skin Skin exam: Present: warm, dry, intact, normal color. Absent: rash ED Course Vital Signs 06/21/20 17:28 Temperature 98.7 F Pulse Rate 73 Respiratory 16 Rate Blood Pressure 127/81 [Right] O2 Sat by Pulse 97 Oximetry ED Medical Decision Making - Lab Data Result diagrams: 06/21/20 18:52 06/21/20 18:52 - Radiology Data Radiology results: report reviewed Referring Physician:PHYLLIS SHELTONPatient Name:CHEVY NGUYỄNSPatient ID:[id number] of :[id number]:MaleAccession:[id number] Date:[id number] Status:Finalized Findings [facility] [address] [place] [address] XRay Report Signed Patient: CHEVY JARAMILLO MR#: [id number] : 1965 Acct:[id number] Age/Sex: 54 / M ADM Date: 06/21/20 Loc: ED Attending Dr: Ordering Physician: TERRI MG Date of Service: 06/21/20 Procedure(s): XR chest routine 2V Accession Number(s): [id number] cc: PHYLLIS L. CAT, PA Fluoro Time In Minutes: CHEST 2 VIEWS INDICATION / CLINICAL INFORMATION: productive cough. COMPARISON: 02/16/2017 FINDINGS: SUPPORT DEVICES: None. HEART / MEDIASTINUM: No significant abnormality. LUNGS / PLEURA: No significant pulmonary or pleural abnormality. No pneumothorax. ADDITIONAL FINDINGS: No significant additional findings. IMPRESSION: 1. No acute findings. No significant interval change. Signer Name: Fredis Gore MD Signed: 06/21/2020 7:04 PM Workstation Name: [id number] Transcribed By: Dictated By: FREDIS GORE Electronically Authenticated By: FREDIS GORE Signed Date/Time: 06/21/201903 DD/ 02 TD/TT: - Medical Decision Making This patient presents with acute cough, most consistent with bronchitis differential diagnosis includes bronchitis, pneumonia, hyperreactive airway disease, will still check infection. Presentation not consistent with acute bacterial pneumonia, influenza, asthma, transient airway hyperresponsiveness. Presentation not consistent with chronic causes of cough (including GERD, asthma, postnasal discharge, medication side effect, CHF, lung cancer or mass). Plan: CXR, supportive care, reassess Critical care attestation.: If time is entered above; I have spent that time in minutes in the direct care of this critically ill patient, excluding procedure time. ED Disposition Clinical Impression: Cough, Bronchitis Disposition: DC-01 TO HOME OR SELFCARE Is pt being admited?: No Does the pt Need Aspirin: No Condition: Stable Instructions: Chronic Bronchitis (ED), Acute Bronchitis (ED), Cold Symptoms (ED), Acute Cough (ED) Prescriptions: Azithromycin [Zithromax] 250 mg PO DAILY #6 tablet Referrals: JOSEPH PINZON MD [Primary Care Provider] - 3-5 Days [facility] [Provider Group] - 3-5 Days
== END 2020-06-21 21:50 | disposition home or self-care (01) ==
LOC: ED 17:20
DX: J40 Bronchitis, not specified as acute or chronic (principal); R05 Cough; I10 Essential (primary) hypertension; E11.9 Type 2 diabetes mellitus without complications; Z79.2 Long term (current) use of antibiotics; Z79.899 Other long term (current) drug therapy
CPT/HCPCS: 36415; 71046; 80053; 81001; 85025

== ENCOUNTER 2020-07-08 15:20 | Emergency (ER) | payer MEDICARE ==
[2020-07-08 15:39] VITALS: BP 177/91
--- NOTE | 2020-07-08 15:49 | Emergency Department Report ---
Chief Complaint: Urogenital-Male Stated Complaint: LOWER BACK PAIN/HBP Time Seen by Provider: 07/08/20 15:37 - HPI History of Present Illness: This is a 54-year-old male nontoxic, well in appearance with no signs of distress presents to the ED for STD check. Patient stated that his partner called and said has STD. Patient stated he is asymptotic. Denies any penile discharge, testicular pain, or swelling. Patient denies any urinary symptoms. Patient denies any fever, chills, headache, nausea, vomiting, chest pain or shortness of breathe. denies any other symptoms or complaints. Denies any allergies or PMH. - Exam Vital Signs: Vital Signs 07/08/20 15:39 Temperature 97.8 F Pulse Rate 92 H Respiratory 18 Rate Blood Pressure 177/91 [Right] O2 Sat by Pulse 96 Oximetry Physical Exam: no penile discharge. no urinary symptoms. no flank pain. no abdominal pain. normal physical exam. MSE screening note: Focused history and physical exam performed. Due to findings the following was ordered: ED Medical Decision Making - Medical Decision Making This is a 54-year-old male that presents with nonmedical emergency complaint. Patient is just requested for a STD test. Patient denies any symptoms. I gave patient many different referrals to follow-up with STD concerns. Patient was instructed to Follow-up with a primary care doctor in 3-5 days or if symptoms worsen and continue return to emergency room as soon as possible. At time of discharge, the patient does not seem toxic or ill in appearance. No acute signs of distress noted. Patient agrees to discharge treatment plan of care. No further questions noted by the patient. ED Disposition for MSE Clinical Impression: Possible exposure to STD Disposition: DC-01 TO HOME OR SELFCARE Is pt being admited?: No Does the pt Need Aspirin: No Condition: Stable Instructions: Safe Sex (ED) Additional Instructions: Follow-up with a primary care doctor in 3-5 days or if symptoms worsen and continue return to emergency room as soon as possible. Referrals: PRIMARY CARE, [Referring] - 3-5 Days BENJAMIN REEVES MD [Staff Physician] - 3-5 Days
== END 2020-07-08 15:38 | disposition home or self-care (01) ==
LOC: ED 15:20
DX: Z20.2 Contact with and (suspected) exposure to infections with a predominantly sexual mode of transmission (principal)
CPT/HCPCS: 99281

== ENCOUNTER 2020-09-17 20:07 | Emergency (ER) | payer MEDICARE ==
--- NOTE | 2020-09-17 20:20 | Event Note ---
ED Screening Note Date of service: 09/17/20 Time: 20:19 ED Screening Note: Patient complains of cough x2 weeks and elevated blood pressure today Denies history of prior hypertension Heart rate noted to be 112 on exam This initial assessment/diagnostic orders/clinical plan/treatment(s) is/are s ubject to change based on patients health status, clinical progression and re- assessment by fellow clinical providers in the ED. Further treatment and workup at subsequent clinical providers discretion. Patient/guardian urged not to elope from the ED as their condition may be serious if not clinically assessed and managed. Initial orders include: Labs Chest x-ray
--- NOTE | 2020-09-17 20:55 | XRay Report ---
CHEST 2 VIEWS INDICATION / CLINICAL INFORMATION: cough. COMPARISON: Chest x-ray 06/21/2020 FINDINGS: SUPPORT DEVICES: None. HEART / MEDIASTINUM: No significant abnormality. LUNGS / PLEURA: No significant pulmonary or pleural abnormality. No pneumothorax. ADDITIONAL FINDINGS: No significant additional findings. IMPRESSION: 1. No acute findings. Signer Name: Reece Curry MD Signed: 09/17/2020 8:50 PM Workstation Name: [id number]
[2020-09-17 21:44] LABS: Basophils # (Auto) 0.1 K/mm3 (0.0-0.1); Basophils % (Auto) 0.8 % (0.0-1.8); Eosinophils # (Auto) 0.1 K/mm3 (0.0-0.4); Eosinophils % (Auto) 1.1 % (0.0-4.3); Hematocrit 40.9 % (35.5-45.6); Hemoglobin 13.5 gm/dl (11.8-15.2); Lymphocytes % (Auto) 28.9 % (13.4-35.0); Mean Corpuscular HGB Conc 33 % (32-34); Mean Corpuscular Volume 89 fl (84-94); Monocytes # (Auto) 0.6 K/mm3 (0.0-0.8); Monocytes % (Auto) 8.2 % (0.0-7.3); Platelet Count 237 K/mm3 (140-440); Red Blood Count 4.57 M/mm3 (3.65-5.03); Red Cell Distribution Width 13.1 % (13.2-15.2)
[2020-09-17 21:46] LABS: Alanine Aminotransferase 24 units/L (7-56); Albumin 4.3 g/dL (3.9-5); BUN/Creatinine Ratio 14; Blood Urea Nitrogen 17 mg/dL (9-20); Calcium 10.1 mg/dL (8.4-10.2); Hemolysis Index 17
[2020-09-17] MEDS ORDERED: SODIUM CHLORIDE 0.9% 1000 ML 1,000 ML IV ONE (22:14)
--- NOTE | 2020-09-18 00:10 | Emergency Department Report ---
ED General Adult HPI - General Chief complaint: High BP Stated complaint: ELEVATED BLOOD PRESSURE Time Seen by Provider: 09/17/20 20:17 Source: patient Mode of arrival: Ambulatory Limitations: No Limitations - History of Present Illness Initial comments: Patient 54-year-old male with history of hypertension controlled by Lotrel p.o. Patient states elevated BP for 2 days after being diagnosed with possible STI. Patient currently for treatment for same on antibiotic therapy. Patient thinks this is because of spiking BV. There is no fever, chills, abdominal pain, diarrhea, chest pain or shortness of breath. Patient states upset because of diagnosis. There are no exacerbating or relieving factors. Patient is tolerating p.o. intake without nausea or vomiting. Patient appears well, well- nourished well-hydrated with no acute distress. - Related Data Home Medications Medication Instructions Recorded Confirmed Last Taken Amlodipine Besylate/Benazepril 1 tab PO QDAY 11/24/13 03/13/17 11/23/13 12:00 [Lotrel 10-20 mg] Previous Rx's Medication Instructions Recorded Last Taken Type Albuterol Mdi (or & Nicu Only) 2 puff IH QID PRN #7 inhalation 03/08/17 Unknown Rx [ProAir HFA Inhaler] Cyclobenzaprine [Flexeril 10 MG 10 mg PO TID PRN #14 tablet 03/08/17 Unknown Rx TAB] Diclofenac Sodium 75 mg PO BID #14 tablet. 03/08/17 Unknown Rx DOXYCYCLINE Hyclate [Vibramycin 100 mg PO BID #42 capsule 03/13/17 Unknown Rx CAP] Phenazopyridine [Pyridium] 200 mg PO TID #9 tab 03/13/17 Unknown Rx Phenylephrine/Dm/Acetaminop/GG 10 ml PO Q6H PRN #1 liquid 10/31/17 Unknown Rx [Mucinex Qjbw-Ygw-Kldjsxxgdg Lq] Brompheniramine/Pseudoephed/Dm 118 ml PO Q6H PRN #240 syrup 07/28/18 Unknown Rx [Bromfed Dm Cough Syrup] DOXYCYCLINE Hyclate [Vibramycin 100 mg PO Q12HR #20 capsule 07/28/18 Unknown Rx CAP] levoFLOXacin [Levaquin TAB] 500 mg PO QDAY #20 tablet 07/28/18 Unknown Rx Phenazopyridine [Pyridium] 200 mg PO TID #9 tab 06/29/19 Unknown Rx Naproxen 500 mg PO Q12H PRN #20 tablet 11/28/19 Unknown Rx Sulfamethoxazole/Trimethoprim 1 each PO BID #60 tablet 12/04/19 Unknown Rx [Bactrim DS TAB] Chlorhexidine Mouthwash [Peridex] 10 ml MM BID #473 bottle 01/04/20 Unknown Rx predniSONE [Deltasone] 20 mg PO QDAY #3 tab 01/04/20 Unknown Rx Azithromycin [Zithromax] 250 mg PO DAILY #6 tablet 06/21/20 Unknown Rx Amlodipine Besylate/Benazepril 1 each PO QDAY #30 capsule 09/18/20 Unknown Rx [Lotrel 10-20 mg] Allergies Allergy/AdvReac Type Severity Reaction Status Date / Time No Known Allergies Allergy Verified 10/31/17 17:43 ED Review of Systems ROS: Stated complaint: ELEVATED BLOOD PRESSURE Other details as noted in HPI Constitutional: denies: chills, fever Eyes: denies: eye pain, eye discharge, vision change ENT: denies: ear pain, throat pain Respiratory: denies: cough, shortness of breath, wheezing Cardiovascular: denies: chest pain, palpitations Endocrine: no symptoms reported Gastrointestinal: denies: abdominal pain, nausea, vomiting, diarrhea Genitourinary: denies: urgency, dysuria Musculoskeletal: denies: back pain, joint swelling, arthralgia Skin: denies: rash, lesions Neurological: as per HPI. denies: headache, weakness, numbness, paresthesias, confusion, vertigo Psychiatric: anxiety Hematological/Lymphatic: denies: easy bleeding, easy bruising ED Past Medical Hx - Past Medical History Hx Hypertension: Yes Hx Diabetes: Yes Additional medical history: high cholesterol - Surgical History Past Surgical History?: No - Social History Smoking Status: Never Smoker Substance Use Type: None - Medications Home Medications: Home Medications Medication Instructions Recorded Confirmed Last Taken Type Amlodipine Besylate/Benazepril 1 tab PO QDAY 11/24/13 03/13/17 11/23/13 12:00 History [Lotrel 10-20 mg] Albuterol Mdi (or & Nicu Only) 2 puff IH QID PRN #7 inhalation 03/08/17 03/13/17 Unknown Rx [ProAir HFA Inhaler] Cyclobenzaprine [Flexeril 10 MG 10 mg PO TID PRN #14 tablet 03/08/17 03/13/17 Unknown Rx TAB] Diclofenac Sodium 75 mg PO BID #14 tablet. 03/08/17 03/13/17 Unknown Rx DOXYCYCLINE Hyclate [Vibramycin 100 mg PO BID #42 capsule 03/13/17 Unknown Rx CAP] Phenazopyridine [Pyridium] 200 mg PO TID #9 tab 03/13/17 Unknown Rx Phenylephrine/Dm/Acetaminop/GG 10 ml PO Q6H PRN #1 liquid 10/31/17 Unknown Rx [Mucinex Qoar-Vum-Mrydgppcxz Lq] Brompheniramine/Pseudoephed/Dm 118 ml PO Q6H PRN #240 syrup 07/28/18 Unknown Rx [Bromfed Dm Cough Syrup] DOXYCYCLINE Hyclate [Vibramycin 100 mg PO Q12HR #20 capsule 07/28/18 Unknown Rx CAP] levoFLOXacin [Levaquin TAB] 500 mg PO QDAY #20 tablet 07/28/18 Unknown Rx Phenazopyridine [Pyridium] 200 mg PO TID #9 tab 06/29/19 Unknown Rx Naproxen 500 mg PO Q12H PRN #20 tablet 11/28/19 Unknown Rx Sulfamethoxazole/Trimethoprim 1 each PO BID #60 tablet 12/04/19 Unknown Rx [Bactrim DS TAB] Chlorhexidine Mouthwash [Peridex] 10 ml MM BID #473 bottle 01/04/20 Unknown Rx predniSONE [Deltasone] 20 mg PO QDAY #3 tab 01/04/20 Unknown Rx Azithromycin [Zithromax] 250 mg PO DAILY #6 tablet 06/21/20 Unknown Rx Amlodipine Besylate/Benazepril 1 each PO QDAY #30 capsule 09/18/20 Unknown Rx [Lotrel 10-20 mg] ED Physical Exam - General Limitations: No Limitations General appearance: alert, in no apparent distress - Head Head exam: Present: atraumatic, normocephalic - Eye Eye exam: Present: normal appearance - ENT ENT exam: Present: normal exam - Neck Neck exam: Present: normal inspection, full ROM. Absent: tenderness - Respiratory Respiratory exam: Present: normal lung sounds bilaterally. Absent: respiratory distress - Cardiovascular Cardiovascular Exam: Present: normal rhythm, normal heart sounds. Absent: systolic murmur, diastolic murmur, rubs, gallop - GI/Abdominal GI/Abdominal exam: Present: soft, normal bowel sounds. Absent: distended, tenderness, bruit, hernia - Rectal Rectal exam: Present: deferred - Extremities Exam Extremities exam: Present: normal inspection, full ROM, normal capillary refill. Absent: tenderness - Back Exam Back exam: Present: normal inspection, full ROM. Absent: tenderness, CVA tenderness (R), CVA tenderness (L), vertebral tenderness, rash noted - Neurological Exam Neurological exam: Present: alert, altered, CN II-XII intact, normal gait, reflexes normal. Absent: motor sensory deficit - Psychiatric Psychiatric exam: Present: normal affect, normal mood - Skin Skin exam: Present: warm, dry, intact, normal color. Absent: rash ED Course Vital Signs 09/17/20 20:16 Temperature 98.2 F Pulse Rate 105 H Respiratory 18 Rate Blood Pressure 176/96 O2 Sat by Pulse 99 Oximetry ED Medical Decision Making - Lab Data Result diagrams: 09/17/20 20:53 09/17/20 20:53 Lab Results 09/17/20 09/17/20 Range/Units 20:53 20:53 WBC 6.8 (4.5-11.0) K/mm3 RBC 4.57 (3.65-5.03) M/mm3 Hgb 13.5 (11.8-15.2) gm/dl Hct 40.9 (35.5-45.6) % MCV 89 (84-94) fl MCH 30 (28-32) pg MCHC 33 (32-34) % RDW 13.1 L (13.2-15.2) % Plt Count 237 (140-440) K/mm3 Lymph % (Auto) 28.9 (13.4-35.0) % [place] % (Auto) 8.2 H (0.0-7.3) % Eos % (Auto) 1.1 (0.0-4.3) % Baso % (Auto) 0.8 (0.0-1.8) % Lymph # (Auto) 2.0 (1.2-5.4) K/mm3 [place] # (Auto) 0.6 (0.0-0.8) K/mm3 Eos # (Auto) 0.1 (0.0-0.4) K/mm3 Baso # (Auto) 0.1 (0.0-0.1) K/mm3 Seg Neutrophils % 61.0 (40.0-70.0) % Seg Neutrophils # 4.2 (1.8-7.7) K/mm3 Sodium 129 L (137-145) mmol/L Potassium 3.8 (3.6-5.0) mmol/L Chloride 93.3 L (98-107) mmol/L Carbon Dioxide 24 (22-30) mmol/L Anion Gap 16 mmol/L BUN 17 (9-20) mg/dL Creatinine 1.2 (0.8-1.3) mg/dL Estimated GFR > 60 ml/min BUN/Creatinine Ratio 14 % Glucose 172 H (75-100) mg/dL Calcium 10.1 (8.4-10.2) mg/dL Total Bilirubin 0.60 (0.1-1.2) mg/dL AST 20 (5-40) units/L ALT 24 (7-56) units/L Alkaline Phosphatase 67 (35-129) units/L Total Protein 7.6 (6.3-8.2) g/dL Albumin 4.3 (3.9-5) g/dL Albumin/Globulin Ratio 1.3 % - Radiology Data Radiology results: report reviewed, image reviewed Findings Reporting MD: Reece Curry Dictation Time: September 17, 2020 19:50 Medical Concierge: Not available Giving Officer Date: CHEST 2 VIEWS INDICATION / CLINICAL INFORMATION: cough. COMPARISON: Chest x-ray 06/21/2020 FINDINGS: SUPPORT DEVICES: None. HEART / MEDIASTINUM: No significant abnormality. LUNGS / PLEURA: No significant pulmonary or pleural abnormality. No pneumothorax. ADDITIONAL FINDINGS: No significant additional findings. IMPRESSION: 1. No acute findings. Signer Name: Reece Curry MD Signed: 09/17/2020 7:50 PM Workstation Name: [id number] - Medical Decision Making Symptoms are improved with medications given in ED. Follow-up vital signs noted. Plan DC to home in stable condition, continue to hydrate as directed continue all medications as prescribed follow-up with primary care doctor in 2 to 3 days. Patient verbalized agreement and understanding with discharge plan. Patient DC'd home in stable condition at this time. Critical care attestation.: If time is entered above; I have spent that time in minutes in the direct care of this critically ill patient, excluding procedure time. ED Disposition Clinical Impression: Mild dehydration, Chronic hypertension Disposition: DC-01 TO HOME OR SELFCARE Is pt being admited?: No Does the pt Need Aspirin: No Condition: Stable Instructions: Rehydration, Adult, Hypertension, Adult, Hypertension (ED) Prescriptions: Amlodipine Besylate/Benazepril [Lotrel 10-20 mg] 1 each PO QDAY #30 capsule Referrals: PRIMARY CARE, [Primary Care Provider] - 3-5 Days Forms: Work/School Release Form(ED) Time of Disposition: 00:32
[2020-09-18 03:42] VITALS: BP 133/88
== END 2020-09-18 00:55 | disposition home or self-care (01) ==
LOC: ED 20:07
DX: E86.0 Dehydration (principal); I10 Essential (primary) hypertension; G89.29 Other chronic pain; E11.9 Type 2 diabetes mellitus without complications; E78.00 Pure hypercholesterolemia, unspecified; Z79.899 Other long term (current) drug therapy
CPT/HCPCS: 36415; 71046; 80053; 85025; 96360; 99284; J7030

== ENCOUNTER 2020-09-26 14:07 | Emergency (ER) | payer MEDICARE ==
[2020-09-26 14:45] LABS: Basophils # (Auto) 0.1 K/mm3 (0.0-0.1); Basophils % (Auto) 0.9 % (0.0-1.8); Eosinophils # (Auto) 0.1 K/mm3 (0.0-0.4); Eosinophils % (Auto) 1.4 % (0.0-4.3); Hematocrit 43.4 % (35.5-45.6); Hemoglobin 14.3 gm/dl (11.8-15.2); Lymphocytes # (Auto) 2.4 K/mm3 (1.2-5.4); Lymphocytes % (Auto) 44.2 % (13.4-35.0); Mean Corpuscular HGB Conc 33 % (32-34); Mean Corpuscular Volume 90 fl (84-94); Monocytes # (Auto) 0.5 K/mm3 (0.0-0.8); Monocytes % (Auto) 9.1 % (0.0-7.3); Platelet Count 292 K/mm3 (140-440); Red Blood Count 4.84 M/mm3 (3.65-5.03); Red Cell Distribution Width 13.2 % (13.2-15.2)
[2020-09-26 14:55] LABS: Alanine Aminotransferase 18 units/L (7-56); Albumin 4.4 g/dL (3.9-5); BUN/Creatinine Ratio 8; Blood Urea Nitrogen 10 mg/dL (9-20); Calcium 9.6 mg/dL (8.4-10.2); Hemolysis Index 9
--- NOTE | 2020-09-26 15:17 | Emergency Department Report ---
ED General Adult HPI - General Chief complaint: Medical Clearance Stated complaint: BLOOD PRESSURE HIGH Time Seen by Provider: 09/26/20 14:49 Source: patient Mode of arrival: Ambulatory Limitations: No Limitations - History of Present Illness Initial comments: Is a pleasant 54-year-old male who presents the emergency department with chief complaint of elevated blood pressure. Patient reports he was recently treated in the emergency department for elevated blood pressure and states at that time his potassium was elevated and he was dehydrated. He reports he is feeling similar and thinks his potassium may be low again. He states he feels small am ount of pressure on his head this is usually causes headache to go up. He does take Lotrel and has been compliant with it. He denies any associated fevers, chills, night sweats, dizziness, blurry vision, nausea,, diarrhea, chest pain, shortness of breath, lower extremity edema or any other associated symptoms. Severity scale (0 -10): 0 - Related Data Home Medications Medication Instructions Recorded Confirmed Last Taken Amlodipine Besylate/Benazepril 1 tab PO QDAY 11/24/13 03/13/17 11/23/13 12:00 [Lotrel 10-20 mg] Previous Rx's Medication Instructions Recorded Last Taken Type Albuterol Mdi (or & Nicu Only) 2 puff IH QID PRN #7 inhalation 03/08/17 Unknown Rx [ProAir HFA Inhaler] Cyclobenzaprine [Flexeril 10 MG 10 mg PO TID PRN #14 tablet 03/08/17 Unknown Rx TAB] Diclofenac Sodium 75 mg PO BID #14 tablet. 03/08/17 Unknown Rx DOXYCYCLINE Hyclate [Vibramycin 100 mg PO BID #42 capsule 03/13/17 Unknown Rx CAP] Phenazopyridine [Pyridium] 200 mg PO TID #9 tab 03/13/17 Unknown Rx Phenylephrine/Dm/Acetaminop/GG 10 ml PO Q6H PRN #1 liquid 10/31/17 Unknown Rx [Mucinex Dadq-Htt-Lgnwtshnsq Lq] Brompheniramine/Pseudoephed/Dm 118 ml PO Q6H PRN #240 syrup 07/28/18 Unknown Rx [Bromfed Dm Cough Syrup] DOXYCYCLINE Hyclate [Vibramycin 100 mg PO Q12HR #20 capsule 07/28/18 Unknown Rx CAP] levoFLOXacin [Levaquin TAB] 500 mg PO QDAY #20 tablet 07/28/18 Unknown Rx Phenazopyridine [Pyridium] 200 mg PO TID #9 tab 06/29/19 Unknown Rx Naproxen 500 mg PO Q12H PRN #20 tablet 11/28/19 Unknown Rx Sulfamethoxazole/Trimethoprim 1 each PO BID #60 tablet 12/04/19 Unknown Rx [Bactrim DS TAB] Chlorhexidine Mouthwash [Peridex] 10 ml MM BID #473 bottle 01/04/20 Unknown Rx predniSONE [Deltasone] 20 mg PO QDAY #3 tab 01/04/20 Unknown Rx Azithromycin [Zithromax] 250 mg PO DAILY #6 tablet 06/21/20 Unknown Rx Amlodipine Besylate/Benazepril 1 each PO QDAY #30 capsule 09/18/20 Unknown Rx [Lotrel 10-20 mg] Allergies Allergy/AdvReac Type Severity Reaction Status Date / Time No Known Allergies Allergy Verified 10/31/17 17:43 ED Review of Systems ROS: Stated complaint: BLOOD PRESSURE HIGH Other details as noted in HPI Comment: All other systems reviewed and negative Constitutional: denies: chills, fever Eyes: denies: eye pain, eye discharge, vision change ENT: denies: ear pain, throat pain Respiratory: denies: cough, shortness of breath, wheezing Cardiovascular: denies: chest pain, palpitations Endocrine: no symptoms reported Gastrointestinal: denies: abdominal pain, nausea, diarrhea Genitourinary: denies: urgency, dysuria Musculoskeletal: denies: back pain, joint swelling, arthralgia Skin: denies: rash, lesions Neurological: as per HPI, headache. denies: weakness, paresthesias Psychiatric: denies: anxiety, depression Hematological/Lymphatic: denies: easy bleeding, easy bruising ED Past Medical Hx - Past Medical History Previous Medical History?: Yes Hx Hypertension: Yes Hx Diabetes: Yes Additional medical history: high cholesterol - Surgical History Past Surgical History?: No - Social History Smoking Status: Never Smoker Substance Use Type: None - Medications Home Medications: Home Medications Medication Instructions Recorded Confirmed Last Taken Type Amlodipine Besylate/Benazepril 1 tab PO QDAY 11/24/13 03/13/17 11/23/13 12:00 History [Lotrel 10-20 mg] Albuterol Mdi (or & Nicu Only) 2 puff IH QID PRN #7 inhalation 03/08/17 03/13/17 Unknown Rx [ProAir HFA Inhaler] Cyclobenzaprine [Flexeril 10 MG 10 mg PO TID PRN #14 tablet 03/08/17 03/13/17 Unknown Rx TAB] Diclofenac Sodium 75 mg PO BID #14 tablet. 03/08/17 03/13/17 Unknown Rx DOXYCYCLINE Hyclate [Vibramycin 100 mg PO BID #42 capsule 03/13/17 Unknown Rx CAP] Phenazopyridine [Pyridium] 200 mg PO TID #9 tab 03/13/17 Unknown Rx Phenylephrine/Dm/Acetaminop/GG 10 ml PO Q6H PRN #1 liquid 10/31/17 Unknown Rx [Mucinex Yjlo-Frb-Vdvyupnjpp Lq] Brompheniramine/Pseudoephed/Dm 118 ml PO Q6H PRN #240 syrup 07/28/18 Unknown Rx [Bromfed Dm Cough Syrup] DOXYCYCLINE Hyclate [Vibramycin 100 mg PO Q12HR #20 capsule 07/28/18 Unknown Rx CAP] levoFLOXacin [Levaquin TAB] 500 mg PO QDAY #20 tablet 07/28/18 Unknown Rx Phenazopyridine [Pyridium] 200 mg PO TID #9 tab 06/29/19 Unknown Rx Naproxen 500 mg PO Q12H PRN #20 tablet 11/28/19 Unknown Rx Sulfamethoxazole/Trimethoprim 1 each PO BID #60 tablet 12/04/19 Unknown Rx [Bactrim DS TAB] Chlorhexidine Mouthwash [Peridex] 10 ml MM BID #473 bottle 01/04/20 Unknown Rx predniSONE [Deltasone] 20 mg PO QDAY #3 tab 01/04/20 Unknown Rx Azithromycin [Zithromax] 250 mg PO DAILY #6 tablet 06/21/20 Unknown Rx Amlodipine Besylate/Benazepril 1 each PO QDAY #30 capsule 09/18/20 Unknown Rx [Lotrel 10-20 mg] ED Physical Exam - General Limitations: No Limitations General appearance: alert, in no apparent distress - Head Head exam: Present: atraumatic, normocephalic - Eye Eye exam: Present: normal appearance, PERRL, EOMI Pupils: Present: normal accommodation - ENT ENT exam: Present: normal exam, normal orophraynx, mucous membranes moist - Neck Neck exam: Present: normal inspection, full ROM. Absent: tenderness, meningismus - Respiratory Respiratory exam: Present: normal lung sounds bilaterally. Absent: respiratory distress, wheezes, rales, rhonchi, stridor - Cardiovascular Cardiovascular Exam: Present: regular rate, normal rhythm, normal heart sounds. Absent: systolic murmur, diastolic murmur, rubs, gallop - GI/Abdominal GI/Abdominal exam: Present: soft, normal bowel sounds. Absent: distended, te nderness, guarding, rebound, rigid - Rectal Rectal exam: Present: deferred - Extremities Exam Extremities exam: Present: normal inspection, full ROM, normal capillary refill. Absent: tenderness - Back Exam Back exam: Present: normal inspection, full ROM. Absent: tenderness, CVA te nderness (R), CVA tenderness (L) - Neurological Exam Neurological exam: Present: alert, oriented X3, CN II-XII intact, normal gait - Psychiatric Psychiatric exam: Present: normal affect, normal mood - Skin Skin exam: Present: warm, dry, intact, normal color. Absent: rash ED Course Vital Signs 09/26/20 14:08 Temperature 98.3 F Pulse Rate 95 H Respiratory 16 Rate Blood Pressure 153/90 [Right] O2 Sat by Pulse 98 Oximetry ED Medical Decision Making - Lab Data Result diagrams: 09/26/20 14:27 09/26/20 14:27 Lab Results 09/26/20 09/26/20 Range/Units 14:27 14:27 WBC 5.4 (4.5-11.0) K/mm3 RBC 4.84 (3.65-5.03) M/mm3 Hgb 14.3 (11.8-15.2) gm/dl Hct 43.4 (35.5-45.6) % MCV 90 (84-94) fl MCH 30 (28-32) pg MCHC 33 (32-34) % RDW 13.2 (13.2-15.2) % Plt Count 292 (140-440) K/mm3 Lymph % (Auto) 44.2 H (13.4-35.0) % [place] % (Auto) 9.1 H (0.0-7.3) % Eos % (Auto) 1.4 (0.0-4.3) % Baso % (Auto) 0.9 (0.0-1.8) % Lymph # (Auto) 2.4 (1.2-5.4) K/mm3 [place] # (Auto) 0.5 (0.0-0.8) K/mm3 Eos # (Auto) 0.1 (0.0-0.4) K/mm3 Baso # (Auto) 0.1 (0.0-0.1) K/mm3 Seg Neutrophils % 44.4 (40.0-70.0) % Seg Neutrophils # 2.4 (1.8-7.7) K/mm3 Sodium 133 L (137-145) mmol/L Potassium 4.4 (3.6-5.0) mmol/L Chloride 98.0 (98-107) mmol/L Carbon Dioxide 27 (22-30) mmol/L Anion Gap 12 mmol/L BUN 10 (9-20) mg/dL Creatinine 1.2 (0.8-1.3) mg/dL Estimated GFR > 60 ml/min BUN/Creatinine Ratio 8 % Glucose 153 H (75-100) mg/dL Calcium 9.6 (8.4-10.2) mg/dL Total Bilirubin 0.70 (0.1-1.2) mg/dL AST 19 (5-40) units/L ALT 18 (7-56) units/L Alkaline Phosphatase 62 (35-129) units/L Troponin T < 0.010 (0.00-0.029) ng/mL Total Protein 8.1 (6.3-8.2) g/dL Albumin 4.4 (3.9-5) g/dL Albumin/Globulin Ratio 1.2 % - Medical Decision Making Patient is nontoxic and in no acute distress. Vital signs are stable other than he is slightly hypertensive at 153/90. Patient is compliant with his blood pressure medication. Educated him that blood pressure medication alone was not enough to control his blood pressure needs to be diet and exercise and avoidance of stimulants. He does have a primary care follow-up this month recommended he call his doctor and try and get in sooner. Also recommended that he make a blood pressure log so his doctor can understand what his pressures are elevated and not to adjust his medication regimen accordingly. Patient's lab work returned relatively normal with a normal potassium, marginally decreased sodium and slightly increased glucose. Patient does not have a history of diabetes. I educated him about a prediabetic diet and again healthy eating habits and exercise habits. He was agreeable to this plan, blood pressure remained stable. Patient was nontoxic in no acute distress. I will discharge him in stable condition with follow-up with his primary care doctor. He is asymptomatic otherwise and according to the [place] [employer] is asymptomatic hypertension does not require any treatment at this time. Patient verbalized understand the diagnosis, treatment plan and follow-up instructions understood that anytime if his symptoms change or worsen he could return to the emerge department for further evaluation - Differential Diagnosis Hypertension, sinusitis, anxiety Critical care attestation.: If time is entered above; I have spent that time in minutes in the direct care of this critically ill patient, excluding procedure time. ED Disposition Clinical Impression: Asymptomatic hypertension Disposition: - TO HOME OR SELFCARE Is pt being admited?: No Condition: Stable Instructions: Hypertension (ED), Preventing Hypertension, Hypertension, Adult, [id number] Referrals: [facility] [Provider Group] - 3-5 Days BENJAMIN REEVES MD [Staff Physician] - 3-5 Days Time of Disposition: 15:16
[2020-09-26 16:08] VITALS: BP 138/73
== END 2020-09-26 16:06 | disposition home or self-care (01) ==
LOC: ED 14:07
DX: I10 Essential (primary) hypertension (principal); E86.0 Dehydration; R51.9 Headache, unspecified; E11.9 Type 2 diabetes mellitus without complications; Z79.2 Long term (current) use of antibiotics; Z79.899 Other long term (current) drug therapy
CPT/HCPCS: 36415; 80053; 84484; 85025

== ENCOUNTER 2021-01-13 14:12 | Emergency (ER) | payer MEDICARE ==
[2021-01-13 14:46] VITALS: BP 141/88
--- NOTE | 2021-01-13 17:04 | Emergency Department Report ---
- General Chief Complaint: Urogenital-Male Stated Complaint: BURNING(PENIS)COUGH/CHEST MARIE Source: patient Mode of arrival: Ambulatory Limitations: No Limitations - History of Present Illness Initial Comments: Patient is a 55-year-old -[place] male with a history of hypertension and wlj-vevqfgt-krcdytwxy diabetes who presents to the ED with complaint of acute onset persistent dry cough with "chest congestion", nasal and sinus congestion for the last 6 months worse in the last 2 weeks. Patient states that his primary care physician prescribed for him Keflex to take every 8 hours but he has only been taking it once a day. Patient states that he decided come to the ED for evaluation thinking that he might be having pneumonia from that persistent cough. Patient denies dizziness, syncope, chest pain, shortness of breath, fever, chills, nausea, vomiting, diarrhea, dysuria, urinary frequency and urgency, change in vision or abdominal pain. MD Complaint: cough, rhinorrhea, nasal congestion -: Sudden Severity: mild Severity scale (0 -10): 0 Quality: dull Consistency: intermittent Improves With: nothing Worsens With: nothing Associated Symptoms: denies other symptoms, rhinorrhea, nasal congestion, cough. denies: fever, chills, myalgias, diaphoresis, headache, sore throat, chest pain, abdominal pain, nausea, vomiting, diarrhea, dysuria, rash, right sweats, weight loss, epistaxis, hoarseness, ear pain Treatments Prior to Arrival: none - Related Data Home Medications Medication Instructions Recorded Confirmed Last Taken Amlodipine Besylate/Benazepril 1 tab PO QDAY 11/24/13 03/13/17 11/23/13 12:00 [Lotrel 10-20 mg] Previous Rx's Medication Instructions Recorded Last Taken Type Albuterol Mdi (or & Nicu Only) 2 puff IH QID PRN #7 inhalation 03/08/17 Unknown Rx [ProAir HFA Inhaler] Cyclobenzaprine [Flexeril 10 MG 10 mg PO TID PRN #14 tablet 03/08/17 Unknown Rx TAB] Diclofenac Sodium 75 mg PO BID #14 tablet. 03/08/17 Unknown Rx DOXYCYCLINE Hyclate [Vibramycin 100 mg PO BID #42 capsule 03/13/17 Unknown Rx CAP] Phenazopyridine [Pyridium] 200 mg PO TID #9 tab 03/13/17 Unknown Rx Phenylephrine/Dm/Acetaminop/GG 10 ml PO Q6H PRN #1 liquid 10/31/17 Unknown Rx [Mucinex Dpft-Hqg-Paxveetgcu Lq] Brompheniramine/Pseudoephed/Dm 118 ml PO Q6H PRN #240 syrup 07/28/18 Unknown Rx [Bromfed Dm Cough Syrup] DOXYCYCLINE Hyclate [Vibramycin 100 mg PO Q12HR #20 capsule 07/28/18 Unknown Rx CAP] levoFLOXacin [Levaquin TAB] 500 mg PO QDAY #20 tablet 07/28/18 Unknown Rx Phenazopyridine [Pyridium] 200 mg PO TID #9 tab 06/29/19 Unknown Rx Naproxen 500 mg PO Q12H PRN #20 tablet 11/28/19 Unknown Rx Sulfamethoxazole/Trimethoprim 1 each PO BID #60 tablet 12/04/19 Unknown Rx [Bactrim DS TAB] Chlorhexidine Mouthwash [Peridex] 10 ml MM BID #473 bottle 01/04/20 Unknown Rx predniSONE [Deltasone] 20 mg PO QDAY #3 tab 01/04/20 Unknown Rx Azithromycin [Zithromax] 250 mg PO DAILY #6 tablet 06/21/20 Unknown Rx Amlodipine Besylate/Benazepril 1 each PO QDAY #30 capsule 09/18/20 Unknown Rx [Lotrel 10-20 mg] Allergies Allergy/AdvReac Type Severity Reaction Status Date / Time No Known Allergies Allergy Verified 01/13/21 14:37 ED Review of Systems ROS: Stated complaint: BURNING(PENIS)COUGH/CHEST MARIE Other details as noted in HPI Constitutional: denies: chills, fever Eyes: denies: eye pain, eye discharge, vision change ENT: congestion. denies: ear pain, throat pain Respiratory: cough. denies: shortness of breath, wheezing Cardiovascular: denies: chest pain, palpitations Endocrine: no symptoms reported Gastrointestinal: denies: abdominal pain, nausea, diarrhea Genitourinary: denies: urgency, dysuria Musculoskeletal: denies: back pain, joint swelling, arthralgia Skin: denies: rash, lesions Neurological: denies: headache, weakness, paresthesias Psychiatric: denies: anxiety, depression Hematological/Lymphatic: denies: easy bleeding, easy bruising ED Past Medical Hx - Past Medical History Hx Hypertension: Yes Hx Diabetes: Yes Additional medical history: high cholesterol - Social History Smoking Status: Never Smoker Substance Use Type: None - Medications Home Medications: Home Medications Medication Instructions Recorded Confirmed Last Taken Type Amlodipine Besylate/Benazepril 1 tab PO QDAY 11/24/13 03/13/17 11/23/13 12:00 History [Lotrel 10-20 mg] Albuterol Mdi (or & Nicu Only) 2 puff IH QID PRN #7 inhalation 03/08/17 03/13/17 Unknown Rx [ProAir HFA Inhaler] Cyclobenzaprine [Flexeril 10 MG 10 mg PO TID PRN #14 tablet 03/08/17 03/13/17 Unknown Rx TAB] Diclofenac Sodium 75 mg PO BID #14 tablet. 03/08/17 03/13/17 Unknown Rx DOXYCYCLINE Hyclate [Vibramycin 100 mg PO BID #42 capsule 03/13/17 Unknown Rx CAP] Phenazopyridine [Pyridium] 200 mg PO TID #9 tab 03/13/17 Unknown Rx Phenylephrine/Dm/Acetaminop/GG 10 ml PO Q6H PRN #1 liquid 10/31/17 Unknown Rx [Mucinex Tcli-Pyj-Mmyxuvbfws Lq] Brompheniramine/Pseudoephed/Dm 118 ml PO Q6H PRN #240 syrup 07/28/18 Unknown Rx [Bromfed Dm Cough Syrup] DOXYCYCLINE Hyclate [Vibramycin 100 mg PO Q12HR #20 capsule 07/28/18 Unknown Rx CAP] levoFLOXacin [Levaquin TAB] 500 mg PO QDAY #20 tablet 07/28/18 Unknown Rx Phenazopyridine [Pyridium] 200 mg PO TID #9 tab 06/29/19 Unknown Rx Naproxen 500 mg PO Q12H PRN #20 tablet 11/28/19 Unknown Rx Sulfamethoxazole/Trimethoprim 1 each PO BID #60 tablet 12/04/19 Unknown Rx [Bactrim DS TAB] Chlorhexidine Mouthwash [Peridex] 10 ml MM BID #473 bottle 01/04/20 Unknown Rx predniSONE [Deltasone] 20 mg PO QDAY #3 tab 01/04/20 Unknown Rx Azithromycin [Zithromax] 250 mg PO DAILY #6 tablet 06/21/20 Unknown Rx Amlodipine Besylate/Benazepril 1 each PO QDAY #30 capsule 09/18/20 Unknown Rx [Lotrel 10-20 mg] ED Physical Exam - General Limitations: No Limitations General appearance: alert, in no apparent distress - Head Head exam: Present: atraumatic, normocephalic, normal inspection - Eye Eye exam: Present: normal appearance, PERRL, EOMI Pupils: Present: normal accommodation - ENT ENT exam: Present: normal orophraynx, mucous membranes moist, TM's normal bilaterally, normal external ear exam, other (Grossly congested nasal passages) - Neck Neck exam: Present: normal inspection, full ROM. Absent: tenderness - Respiratory Respiratory exam: Present: normal lung sounds bilaterally. Absent: respiratory distress, wheezes, rales, rhonchi, chest wall tenderness, accessory muscle use, decreased breath sounds, prolonged expiratory - Cardiovascular Cardiovascular Exam: Present: regular rate, normal rhythm, normal heart sounds. Absent: systolic murmur, diastolic murmur, rubs, gallop - GI/Abdominal GI/Abdominal exam: Present: soft, normal bowel sounds. Absent: tenderness, guarding, rebound, hyperactive bowel sounds, hypoactive bowel sounds, organomegaly, mass - Extremities Exam Extremities exam: Present: normal inspection, full ROM, normal capillary refill - Back Exam Back exam: Present: normal inspection, full ROM. Absent: tenderness, CVA tenderness (R), CVA tenderness (L), muscle spasm, paraspinal tenderness, vertebral tenderness - Neurological Exam Neurological exam: Present: alert, oriented X3, CN II-XII intact, normal gait, reflexes normal - Psychiatric Psychiatric exam: Present: normal affect, normal mood - Skin Skin exam: Present: warm, dry, intact, normal color. Absent: rash ED Course Vital Signs 01/13/21 14:41 Temperature 98.7 F Pulse Rate 79 Respiratory 18 Rate Blood Pressure 141/88 O2 Sat by Pulse 98 Oximetry ED Medical Decision Making - Medical Decision Making This is a 55-year-old -[place] male with a history of hypertension and zrw-zhzymfx-tjlypnnsf diabetes who presents to the ED with complaint of acute onset persistent dry cough with "chest congestion", nasal and sinus congestion for the last 6 months worse in the last 2 weeks. Patient states that his primary care physician prescribed for him Keflex to take every 8 hours but he has only been taking it once a day. Patient states that he decided come to the ED for evaluation thinking that he might be having pneumonia from that persistent cough. In the ED, patient is alert and oriented x3 and is not in any distress. Patient symptoms have been going on for over 5 months, and patient is currently on Keflex for acute urea URI but the patient has been noncompliant only taking the medication once a day and possibly as needed. In the ED, patient was educated on the importance of being compliant with the prescribed medications especially antibiotics. Patient was advised to take icch-pkp-fxjlgfu decongestants for upper respiratory congestion and took strictly take the antibiotic as previously prescribed by his primary care physician. Patient was therefore advised to follow-up with his primary care physician in 5 to 7 days for reevaluation or return to the ED immediately if symptoms get worse. - Differential Diagnosis Bronchitis; URI; Pneumonia; Critical care attestation.: If time is entered above; I have spent that time in minutes in the direct care of this critically ill patient, excluding procedure time. ED Disposition Clinical Impression: Chronic allergic rhinitis Chronic bronchitis Qualifiers: Chronic bronchitis type: simple Qualified Code(s): J41.0 - Simple chronic bronchitis Disposition: DC- TO HOME OR SELFCARE Is pt being admited?: No Does the pt Need Aspirin: No Condition: Stable Instructions: Chronic Bronchitis (ED), Allergic Rhinitis, Adult, Inml-hu-Ceyy, Cough, Adult, Nhpt-sv-Aduq, Chronic Bronchitis, Adult Additional Instructions: Continue taking the previously prescribed antibiotics, take pgqg-nmx-rihqfmh medications for cough or allergies. Return to the ED immediately if symptoms get worse. Follow-up with your primary care physician in 5 to 7 days for reevaluation. Referrals: [facility] [Provider Group] - 3-5 Days Time of Disposition: 17:09 Print Language: TURKMEN
== END 2021-01-13 17:41 | disposition home or self-care (01) ==
LOC: ED 14:12
DX: J30.9 Allergic rhinitis, unspecified (principal); J20.9 Acute bronchitis, unspecified; I10 Essential (primary) hypertension; E11.9 Type 2 diabetes mellitus without complications; Z79.899 Other long term (current) drug therapy
CPT/HCPCS: 99281

== ENCOUNTER 2021-10-01 06:02 | Emergency (ER) | payer MEDICARE ==
--- NOTE | 2021-10-01 07:47 | Emergency Department Report ---
HPI - General Chief Complaint: Urogenital-Male Time Seen by Provider: 10/01/21 07:33 - HPI HPI: MSE 7 Patient is a 55-year-old male present with a chief complaint of left flank pain. Patient states he has had intermittent pain in the left flank since November 2020. Patient denies testicular pain or groin pain but states that his groin feels sensitive. Patient denies dysuria or hematuria. Patient denies nausea or vomiting. Patient admits to subjective fever last night. ED Past Medical Hx - Past Medical History Hx Hypertension: Yes Hx Diabetes: Yes Additional medical history: high cholesterol - Surgical History Past Surgical History?: No - Family History Family history: no significant - Social History Smoking Status: Never Smoker Substance Use Type: None (Denies illicit drug) - Medications Home Medications: Home Medications Medication Instructions Recorded Confirmed Last Taken Type Amlodipine Besylate/Benazepril 1 tab PO QDAY 11/24/13 03/13/17 11/23/13 12:00 History [Lotrel 10-20 mg] Albuterol Mdi (or & Nicu Only) 2 puff IH QID PRN #7 inhalation 03/08/17 03/13/17 Unknown Rx [ProAir HFA Inhaler] Cyclobenzaprine [Flexeril 10 MG 10 mg PO TID PRN #14 tablet 03/08/17 03/13/17 Unknown Rx TAB] Diclofenac Sodium 75 mg PO BID #14 tablet. 03/08/17 03/13/17 Unknown Rx DOXYCYCLINE Hyclate [Vibramycin 100 mg PO BID #42 capsule 03/13/17 Unknown Rx CAP] Phenazopyridine [Pyridium] 200 mg PO TID #9 tab 03/13/17 Unknown Rx Phenylephrine/Dm/Acetaminop/GG 10 ml PO Q6H PRN #1 liquid 10/31/17 Unknown Rx [Mucinex Mlzg-Zld-Gwnuzfvelr Lq] Brompheniramine/Pseudoephed/Dm 118 ml PO Q6H PRN #240 syrup 07/28/18 Unknown Rx [Bromfed Dm Cough Syrup] DOXYCYCLINE Hyclate [Vibramycin 100 mg PO Q12HR #20 capsule 07/28/18 Unknown Rx CAP] levoFLOXacin [Levaquin TAB] 500 mg PO QDAY #20 tablet 07/28/18 Unknown Rx Phenazopyridine [Pyridium] 200 mg PO TID #9 tab 06/29/19 Unknown Rx Naproxen 500 mg PO Q12H PRN #20 tablet 11/28/19 Unknown Rx Sulfamethoxazole/Trimethoprim 1 each PO BID #60 tablet 12/04/19 Unknown Rx [Bactrim DS TAB] Chlorhexidine Mouthwash [Peridex] 10 ml MM BID #473 bottle 01/04/20 Unknown Rx predniSONE [Deltasone] 20 mg PO QDAY #3 tab 01/04/20 Unknown Rx Azithromycin [Zithromax] 250 mg PO DAILY #6 tablet 06/21/20 Unknown Rx Amlodipine Besylate/Benazepril 1 each PO QDAY #30 capsule 09/18/20 Unknown Rx [Lotrel 10-20 mg] Ibuprofen [Motrin 800 MG tab] 800 mg PO Q8HR PRN #20 tablet 10/01/21 Unknown Rx traMADoL [Ultram] 50 mg PO Q6HR PRN #10 tablet 10/01/21 Unknown Rx ED Review of Systems ROS: Stated complaint: GROIN/SIDE PAIN Other details as noted in HPI Constitutional: fever (Subjective) Eyes: denies: eye pain ENT: denies: throat pain Respiratory: no symptoms reported Cardiovascular: denies: chest pain Endocrine: no symptoms reported Gastrointestinal: denies: abdominal pain, nausea, vomiting, diarrhea Genitourinary: denies: dysuria, hematuria, testicular pain Musculoskeletal: back pain Neurological: denies: headache Physical Exam - Physical Exam Vital Signs: Vital Signs 10/01/21 06:04 Temperature 98.4 F Pulse Rate 98 H Respiratory 17 Rate Blood Pressure 159/94 [Right] O2 Sat by Pulse 98 Oximetry Physical Exam: GENERAL: The patient is well-developed well-nourished male sitting in chair not appearing to be in acute distress. [] HEENT: Normocephalic. Atraumatic. Extraocular motions are intact. Patient has moist mucous membranes. NECK: Supple. Trachea midline CHEST/LUNGS: Clear to auscultation. There is no respiratory distress noted. HEART/CARDIOVASCULAR: Regular. There is no tachycardia. There is no gallop rub or murmur. ABDOMEN: Abdomen is soft, nontender. Patient has normal bowel sounds. There is no abdominal distention. SKIN: There is no rash. There is no edema. There is no diaphoresis. NEURO: The patient is awake, alert, and oriented. The patient is cooperative. The patient has no focal neurologic deficits. The patient has normal speech and gait. GCS 15 MUSCULOSKELETAL: There is no CVA tenderness. There is no evidence of acute injury. ED Course Vital Signs 10/01/21 06:04 Temperature 98.4 F Pulse Rate 98 H Respiratory 17 Rate Blood Pressure 159/94 [Right] O2 Sat by Pulse 98 Oximetry ED Medical Decision Making - Lab Data Result diagrams: 10/01/21 08:26 10/01/21 08:26 Laboratory Tests 10/01/21 10/01/21 10/01/21 08:26 08:26 Unknown WBC 5.8 RBC 4.95 Hgb 14.2 Hct 44.2 MCV 89 MCH 29 MCHC 32 RDW 13.4 Plt Count 240 Lymph % (Auto) 38.4 H [place] % (Auto) 9.9 H Eos % (Auto) 1.3 Baso % (Auto) 0.7 Lymph # (Auto) 2.2 [place] # (Auto) 0.6 Eos # (Auto) 0.1 Baso # (Auto) 0.0 Seg Neutrophils % 49.7 Seg Neutrophils # 2.9 Sodium 135 L Potassium 4.2 Chloride 98.3 Carbon Dioxide 23 Anion Gap 18 BUN 13 Creatinine 1.0 Estimated GFR > 60 BUN/Creatinine Ratio 13 Glucose 141 H Calcium 9.5 Total Bilirubin 0.70 AST 14 ALT 14 Alkaline Phosphatase 62 Total Protein 7.7 Albumin 4.4 Albumin/Globulin Ratio 1.3 Lipase 18 Urine Color Straw Urine Turbidity Clear Urine pH 5.0 Ur Specific [place] 1.005 Urine Protein <15 mg/dl Urine Glucose (UA) Neg Urine Ketones Neg Urine Blood Neg Urine Nitrite Neg Urine Bilirubin Neg Urine Urobilinogen < 2.0 Ur Leukocyte Esterase Neg Urine WBC (Auto) < 1.0 Urine RBC (Auto) 1.0 - Differential Diagnosis Lumbar radiculopathy, pyelonephritis, anxiety Critical care attestation.: If time is entered above; I have spent that time in minutes in the direct care of this critically ill patient, excluding procedure time. ED Disposition Clinical Impression: Left flank pain Disposition: HOME / SELF CARE / HOMELESS Is pt being admited?: No Does the pt Need Aspirin: No Condition: Stable Instructions: Flank Pain, Adult, [id number] Additional Instructions: Return to the emergency department should you develop worsening symptoms, inability to tolerate food or liquids, high fever or any other concerns Prescriptions: Ibuprofen [Motrin 800 MG tab] 800 mg PO Q8HR PRN #20 tablet PRN Reason: Pain, Moderate (4-6) traMADoL [Ultram] 50 mg PO Q6HR PRN #10 tablet PRN Reason: Pain Referrals: BENJAMIN BAUGH MD [Staff Physician] - 3-5 Days (Dr. Baugh is a primary physician. Please follow-up with him to be established as a patient) Time of Disposition: 09:16
[2021-10-01 08:04] LABS: Bilirubin,Urine NEG (Negative); Blood,Urine NEG (Negative); Color,Urine Straw (Yellow); Protein,Urine <15 mg/dL mg/dL (Negative); Urobilinogen,Urine < 2.0 mg/dL (<2.0); WBC,Urine < 1.0 /HPF (0.0-6.0)
[2021-10-01 08:51] LABS: Basophils % (Auto) 0.7 % (0.0-1.8); Eosinophils # (Auto) 0.1 K/mm3 (0.0-0.4); Eosinophils % (Auto) 1.3 % (0.0-4.3); Hematocrit 44.2 % (35.5-45.6); Hemoglobin 14.2 gm/dl (11.8-15.2); Lymphocytes # (Auto) 2.2 K/mm3 (1.2-5.4); Lymphocytes % (Auto) 38.4 % (13.4-35.0); Mean Corpuscular HGB Conc 32 % (32-34); Mean Corpuscular Volume 89 fl (84-94); Monocytes # (Auto) 0.6 K/mm3 (0.0-0.8); Monocytes % (Auto) 9.9 % (0.0-7.3); Platelet Count 240 K/mm3 (140-440); Red Blood Count 4.95 M/mm3 (3.65-5.03); Red Cell Distribution Width 13.4 % (13.2-15.2)
[2021-10-01 09:02] LABS: Alanine Aminotransferase 14 units/L (7-56); Albumin 4.4 g/dL (3.9-5); BUN/Creatinine Ratio 13; Blood Urea Nitrogen 13 mg/dL (9-20); Calcium 9.5 mg/dL (8.4-10.2); Hemolysis Index 7
[2021-10-01 09:29] VITALS: BP 136/80
== END 2021-10-01 09:31 | disposition home or self-care (01) ==
LOC: ED 06:02
DX: R10.9 Unspecified abdominal pain (principal); I10 Essential (primary) hypertension; E11.8 Type 2 diabetes mellitus with unspecified complications
CPT/HCPCS: 36415; 80053; 81001; 83690; 85025; 99283

== ENCOUNTER 2022-01-23 02:19 | Emergency (ER) | payer MEDICARE ==
--- NOTE | 2022-01-23 05:03 | XRay Report ---
CHEST 2 VIEWS INDICATION / CLINICAL INFORMATION: cough. COMPARISON: Chest x-ray 09/17/2020 FINDINGS: SUPPORT DEVICES: None. HEART / MEDIASTINUM: No significant abnormality. LUNGS / PLEURA: No significant pulmonary or pleural abnormality. No pneumothorax. BONES: No significant osseous abnormality. ADDITIONAL FINDINGS: No significant additional findings. IMPRESSION: 1. No active cardiopulmonary disease. Signer Name: Brigido Wharton II, MD Signed: 01/23/2022 4:58 AM Workstation Name: [id number]
[2022-01-23 05:43] LABS: Bilirubin,Urine NEG (Negative); Blood,Urine SM (Negative); Color,Urine Straw (Yellow); Protein,Urine <15 mg/dL mg/dL (Negative)
[2022-01-23 05:56] LABS: Basophils # (Auto) 0.1 K/mm3 (0.0-0.1); Basophils % (Auto) 0.9 % (0.0-1.8); Eosinophils # (Auto) 0.1 K/mm3 (0.0-0.4); Eosinophils % (Auto) 1.2 % (0.0-4.3); Hemoglobin 14.3 gm/dl (11.8-15.2); Lymphocytes # (Auto) 1.9 K/mm3 (1.2-5.4); Lymphocytes % (Auto) 30.2 % (13.4-35.0); Mean Corpuscular HGB Conc 33 % (32-34); Mean Corpuscular Volume 90 fl (84-94); Monocytes # (Auto) 0.6 K/mm3 (0.0-0.8); Monocytes % (Auto) 10.4 % (0.0-7.3); Platelet Count 238 K/mm3 (140-440); Red Blood Count 4.87 M/mm3 (3.65-5.03); Red Cell Distribution Width 12.9 % (13.2-15.2)
[2022-01-23 06:17] LABS: Alanine Aminotransferase 22 units/L (7-56); Albumin 4.7 g/dL (3.9-5); BUN/Creatinine Ratio 15; Blood Urea Nitrogen 15 mg/dL (9-20); Calcium 10.3 mg/dL (8.4-10.2); Hemolysis Index 28
[2022-01-23] MEDS: KETOROLAC 10 MG TAB PO ONE (07:10)
[2022-01-23] MEDS: DEXAMETHASONE 4 MG TAB PO ONE (07:10)
--- NOTE | 2022-01-23 08:10 | Emergency Department Report ---
- General Chief Complaint: Upper Respiratory Infection Stated Complaint: COUGH,AND FEEL PRICKING & SORENESS ON LEFT SIDE Time Seen by Provider: 01/23/22 06:08 Source: patient Mode of arrival: Ambulatory Limitations: No Limitations - History of Present Illness Initial Comments: 56-year-old black male with a past medical history of hypertension and hyperlipidemia presents to the emergency department for evaluation of 2-week history of body aches and cough. He states that he has felt congested and achy intermittently over the last couple of weeks along with intermittent "prickly" feeling in his chest. He denies fever, shortness of breath, nausea, vomiting, dizziness, and diaphoresis. He denies chest pain at this time. MD Complaint: cough, nasal congestion -: Gradual, week(s) (To) Severity: moderate Associated Symptoms: myalgias, nasal congestion, cough, chest pain. denies: fever, chills, diaphoresis, headache, rhinorrhea, sore throat, stiff neck, shortness of breath, abdominal pain, nausea, vomiting, diarrhea, dysuria, rash Treatments Prior to Arrival: none - Related Data Home Medications Medication Instructions Recorded Confirmed Last Taken Amlodipine Besylate/Benazepril 1 tab PO QDAY 11/24/13 03/13/17 11/23/13 12:00 [Lotrel 10-20 mg] Previous Rx's Medication Instructions Recorded Last Taken Type Albuterol Mdi (or & Nicu Only) 2 puff IH QID PRN #7 inhalation 03/08/17 Unknown Rx [ProAir HFA Inhaler] Cyclobenzaprine [Flexeril 10 MG 10 mg PO TID PRN #14 tablet 03/08/17 Unknown Rx TAB] Diclofenac Sodium 75 mg PO BID #14 tablet.dr 03/08/17 Unknown Rx DOXYCYCLINE Hyclate [Vibramycin 100 mg PO BID #42 capsule 03/13/17 Unknown Rx CAP] Phenazopyridine [Pyridium] 200 mg PO TID #9 tab 03/13/17 Unknown Rx Phenylephrine/Dm/Acetaminop/GG 10 ml PO Q6H PRN #1 liquid 10/31/17 Unknown Rx [Mucinex Ufvv-Tvl-Kxvzqzoshf Lq] Brompheniramine/Pseudoephed/Dm 118 ml PO Q6H PRN #240 syrup 07/28/18 Unknown Rx [Bromfed Dm Cough Syrup] DOXYCYCLINE Hyclate [Vibramycin 100 mg PO Q12HR #20 capsule 07/28/18 Unknown Rx CAP] levoFLOXacin [Levaquin TAB] 500 mg PO QDAY #20 tablet 07/28/18 Unknown Rx Phenazopyridine [Pyridium] 200 mg PO TID #9 tab 06/29/19 Unknown Rx Naproxen 500 mg PO Q12H PRN #20 tablet 11/28/19 Unknown Rx Sulfamethoxazole/Trimethoprim 1 each PO BID #60 tablet 12/04/19 Unknown Rx [Bactrim DS TAB] Chlorhexidine Mouthwash [Peridex] 10 ml MM BID #473 bottle 01/04/20 Unknown Rx predniSONE [Deltasone] 20 mg PO QDAY #3 tab 01/04/20 Unknown Rx Azithromycin [Zithromax] 250 mg PO DAILY #6 tablet 06/21/20 Unknown Rx Amlodipine Besylate/Benazepril 1 each PO QDAY #30 capsule 09/18/20 Unknown Rx [Lotrel 10-20 mg] Ibuprofen [Motrin 800 MG tab] 800 mg PO Q8HR PRN #20 tablet 10/01/21 Unknown Rx traMADoL [Ultram] 50 mg PO Q6HR PRN #10 tablet 10/01/21 Unknown Rx methylPREDNISolone [Medrol 4MG 4 mg PO DAILY #1 pack 01/23/22 Unknown Rx DOSEPAK (21 tabs)] Allergies Allergy/AdvReac Type Severity Reaction Status Date / Time No Known Allergies Allergy Verified 10/01/21 06:07 ED Review of Systems ROS: Stated complaint: COUGH,AND FEEL PRICKING & SORENESS ON LEFT SIDE Other details as noted in HPI Comment: All other systems reviewed and negative Constitutional: denies: chills, fever, weakness ENT: congestion Respiratory: no symptoms reported. denies: shortness of breath, SOB with exertion, SOB at rest Cardiovascular: chest pain. denies: palpitations, dyspnea on exertion, or thopnea, edema, syncope Gastrointestinal: denies: abdominal pain, nausea, vomiting Genitourinary: denies: urgency, dysuria Musculoskeletal: myalgia. denies: back pain Neurological: denies: headache, weakness, numbness, paresthesias, abnormal gait ED Past Medical Hx - Past Medical History Hx Hypertension: Yes Hx Diabetes: Yes Additional medical history: high cholesterol - Social History Smoking Status: Never Smoker Substance Use Type: None (Denies illicit drug) - Medications Home Medications: Home Medications Medication Instructions Recorded Confirmed Last Taken Type Amlodipine Besylate/Benazepril 1 tab PO QDAY 11/24/13 03/13/17 11/23/13 12:00 History [Lotrel 10-20 mg] Albuterol Mdi (or & Nicu Only) 2 puff IH QID PRN #7 inhalation 03/08/17 03/13/17 Unknown Rx [ProAir HFA Inhaler] Cyclobenzaprine [Flexeril 10 MG 10 mg PO TID PRN #14 tablet 03/08/17 03/13/17 Unknown Rx TAB] Diclofenac Sodium 75 mg PO BID #14 tablet. 03/08/17 03/13/17 Unknown Rx DOXYCYCLINE Hyclate [Vibramycin 100 mg PO BID #42 capsule 03/13/17 Unknown Rx CAP] Phenazopyridine [Pyridium] 200 mg PO TID #9 tab 03/13/17 Unknown Rx Phenylephrine/Dm/Acetaminop/GG 10 ml PO Q6H PRN #1 liquid 10/31/17 Unknown Rx [Mucinex Sypo-Kmm-Tzjbqqcfpy Lq] Brompheniramine/Pseudoephed/Dm 118 ml PO Q6H PRN #240 syrup 07/28/18 Unknown Rx [Bromfed Dm Cough Syrup] DOXYCYCLINE Hyclate [Vibramycin 100 mg PO Q12HR #20 capsule 07/28/18 Unknown Rx CAP] levoFLOXacin [Levaquin TAB] 500 mg PO QDAY #20 tablet 07/28/18 Unknown Rx Phenazopyridine [Pyridium] 200 mg PO TID #9 tab 06/29/19 Unknown Rx Naproxen 500 mg PO Q12H PRN #20 tablet 11/28/19 Unknown Rx Sulfamethoxazole/Trimethoprim 1 each PO BID #60 tablet 12/04/19 Unknown Rx [Bactrim DS TAB] Chlorhexidine Mouthwash [Peridex] 10 ml MM BID #473 bottle 01/04/20 Unknown Rx predniSONE [Deltasone] 20 mg PO QDAY #3 tab 01/04/20 Unknown Rx Azithromycin [Zithromax] 250 mg PO DAILY #6 tablet 06/21/20 Unknown Rx Amlodipine Besylate/Benazepril 1 each PO QDAY #30 capsule 09/18/20 Unknown Rx [Lotrel 10-20 mg] Ibuprofen [Motrin 800 MG tab] 800 mg PO Q8HR PRN #20 tablet 10/01/21 Unknown Rx traMADoL [Ultram] 50 mg PO Q6HR PRN #10 tablet 10/01/21 Unknown Rx methylPREDNISolone [Medrol 4MG 4 mg PO DAILY #1 pack 01/23/22 Unknown Rx DOSEPAK (21 tabs)] ED Physical Exam - General Limitations: No Limitations General appearance: alert, in no apparent distress - Head Head exam: Present: atraumatic, normocephalic - Eye Eye exam: Present: normal appearance. Absent: conjunctival injection - ENT ENT exam: Present: mucous membranes moist. Absent: normal exam (Bilateral nasal mucosal edema) - Neck Neck exam: Present: normal inspection. Absent: tenderness, lymphadenopathy - Respiratory Respiratory exam: Present: normal lung sounds bilaterally, chest wall tenderne ss. Absent: respiratory distress, wheezes, rales, rhonchi, stridor - Cardiovascular Cardiovascular Exam: Present: regular rate, normal heart sounds - GI/Abdominal GI/Abdominal exam: Present: soft, normal bowel sounds. Absent: distended, tenderness, guarding, rebound, rigid - Extremities Exam Extremities exam: Present: normal inspection - Back Exam Back exam: Present: normal inspection. Absent: tenderness, CVA tenderness (R), CVA tenderness (L) - Neurological Exam Neurological exam: Present: alert, oriented X3, normal gait - Psychiatric Psychiatric exam: Present: normal affect, normal mood - Skin Skin exam: Present: warm, dry, intact, normal color ED Course Vital Signs 01/23/22 02:32 Temperature 97.7 F Pulse Rate 97 H Respiratory 18 Rate Blood Pressure 196/106 [Right] O2 Sat by Pulse 97 Oximetry - Reevaluation(s) Reevaluation #1: 01/23/22 08:40 Patient states that symptoms significantly improved after medication. ED Medical Decision Making - Lab Data Result diagrams: 01/23/22 05:11 01/23/22 05:11 - EKG Data Interpretation: no acute changes, normal EKG - Radiology Data Radiology results: image reviewed Chest x-ray: FINDINGS: SUPPORT DEVICES: None. HEART / MEDIASTINUM: No significant abnormality. LUNGS / PLEURA: No significant pulmonary or pleural abnormality. No pneumothorax. BONES: No significant osseous abnormality. ADDITIONAL FINDINGS: No significant additional findings. IMPRESSION: 1. No active cardiopulmonary disease. - Medical Decision Making 56-year-old black male with a past medical history of hypertension and hyperlipidemia presents to the emergency department for evaluation of 2-week history of body aches and cough. He states that he has felt congested and achy intermittently over the last couple of weeks along with intermittent "prickly" feeling in his chest. He denies fever, shortness of breath, nausea, vomiting, dizziness, and diaphoresis. He denies chest pain at this time. No gross abnormalities noted on exam or labs. EKG without any acute ischemic changes noted, troponin within normal limits, chest x-ray without any acute abnormalities, and patient without chest pain at this time. Symptoms improved after medication. Low suspicion for CO. Patient in no acute distress, and will be discharged home with Medrol Dosepak for URI with cough and congestion. He is advised to take medications as prescribed and follow-up with primary care provider if worsening symptoms. He verbalized understanding of and agreement with plan of care. - Differential Diagnosis Pneumonia, viral syndrome, CO, URI Critical care attestation.: If time is entered above; I have spent that time in minutes in the direct care of this critically ill patient, excluding procedure time. ED Disposition Clinical Impression: URI with cough and congestion Disposition: 01 HOME / SELF CARE / HOMELESS Is pt being admited?: No Does the pt Need Aspirin: No Condition: Stable Instructions: Cough, Adult, [id number], Viral Respiratory Infection, [id number] Additional Instructions: Take medications as prescribed. Follow-up with primary care provider for further evaluation and management. Return to the emergency department as needed. Prescriptions: methylPREDNISolone [Medrol 4MG DOSEPAK (21 tabs)] 4 mg PO DAILY #1 pack Referrals: DANIELLE NESS MD [Referring] - 3-5 Days Time of Disposition: 08:10
[2022-01-23 09:10] VITALS: BP 151/90
--- NOTE | 2022-01-25 08:40 | Electrocardiograph Report ---
[facility] Test Date: 2022-01-23 Test Time: 07:33:55 Pat Name: CHEVY JARAMILLO Department: Room: Gender: M Radiology Receptionist: LEONORA : 1965 Requested By: GUI CROCKER Order Number: [id number] Reading MD: Joseph Truong Measurements Intervals [place] Rate: 61 P: 62 NC: 120 QRS: 69 QRSD: 89 T: 21 QT: 388 QTc: 391 Interpretive Statements Sinus rhythm ST elev, probable normal early repol pattern No previous ECG available for comparison Electronically Signed On 01-25-2022 8:40:05 EDT by Joseph Truong
== END 2022-01-23 09:10 | disposition home or self-care (01) ==
LOC: ED 02:19
DX: J06.9 Acute upper respiratory infection, unspecified (principal); I10 Essential (primary) hypertension; E11.9 Type 2 diabetes mellitus without complications; E78.00 Pure hypercholesterolemia, unspecified; Z79.899 Other long term (current) drug therapy
CPT/HCPCS: 36415; 71046; 80053; 81001; 84484; 85025; 93005; 99284; J8540